=== PATIENT | female | born 1985 | race African-American/Black ===

== ENCOUNTER 2016-09-26 20:58 | Emergency (ER) | payer BC, OTHER ==
[2016-09-26 21:18] VITALS: BMI 35.0
--- NOTE | 2016-09-26 22:57 | PDOC ---
History of Present Illness - History of Present Illness Initial Comments: 09/26/16 23:12 Patient is a 31 year old female, s/p liposuction on 08/30/16, with no other significant medical hx, who is presenting to the ED with back pain and pedal edema. Patient received her liposuction in [place] and flew back to [place] five days later on 08/31. Since her surgery she's had back pain but it has been significantly worse today. The patient states that her pain is all over her back and severe. The patient also endorses fatigue and lower extremity swelling , predominantly in her feet. Denies chest pain, shortness of breath, lightheadedness, dizziness, surgical complications, fevers, chills, nausea, vomiting, diarrhea, headache or any other symptoms. Surgical Hx: Liposuction, x2 Allergies: NKDA 09/27/16 01:42 Upon second interview, patient admits to going to a massage therapist three times a week to have fluid drained from her back. She states that this involves the massage therapist puncturing her back with a needle to have the fluid drained. The patient had her last session today. <Molly Curry - Last Filed: 09/27/16 02:06> <Zahraa Amezquita - Last Filed: 09/28/16 01:40> - General Chief Complaint: Back Pain Stated Complaint: BACK PAIN/FEELING TIRED/LIGHTHEADED Time Seen by Provider: 09/26/16 21:40 Past History <Molly Curry - Last Filed: 09/27/16 02:06> - Immunization History Immunization Up to Date: Yes - Psycho/Social/Smoking Cessation Hx Anxiety: No Suicidal Ideation: No Smoking Status: No Smoking History: Never smoked Number of Cigarettes Smoked Daily: 0 Cigars Per Day: 0 Hx Alcohol Use: No Drug/Substance Use Hx: No Substance Use Type: None <Zahraa Amezquita - Last Filed: 09/28/16 01:40> - Past Medical History Allergies/Adverse Reactions: Allergies Allergy/AdvReac Type Severity Reaction Status Date / Time No Known Allergies Allergy Verified 09/26/16 21:14 Home Medications: Ambulatory Orders NK [No Known Home Medication] 09/27/16 Review of Systems - Review of Systems Comments:: 09/26/16 23:17 CONSTITUTIONAL: Present: fatigue Absent: fever, chills, diaphoresis, loss of appetite HEENT: Absent: rhinorrhea, nasal congestion, throat pain, throat swelling, difficulty swallowing, mouth swelling, ear pain, eye pain, visual changes CARDIOVASCULAR: Present: pedal edema Absent: chest pain, syncope, palpitations, irregular heart rate, lightheadedness RESPIRATORY: Absent: cough, shortness of breath, dyspnea with exertion, orthopnea, wheezing, stridor, hemoptysis GASTROINTESTINAL: Absent: abdominal pain, abdominal distension, nausea, vomiting, diarrhea, constipation, melena, hematochezia GENITOURINARY: Absent: dysuria, frequency, urgency, hesitancy, hematuria, flank pain, genital pain MUSCULOSKELETAL: Present: back pain Absent: myalgia, arthralgia, joint swelling SKIN: Absent: rash, itching, pallor HEMATOLOGIC/IMMUNOLOGIC: Absent: easy bleeding, easy bruising, lymphadenopathy, frequent infections ENDOCRINE: Absent: unexplained weight gain, unexplained weight loss, heat intolerance, cold intolerance NEUROLOGIC: Absent: headache, focal weakness or paresthesia, dizziness, unsteady gait, seizure, mental status changes, bladder or bowel incontinence. PSYCHIATRIC: Absent: anxiety, depression, suicidal or homicidal ideation, hallucinations <Antoinette,Molly - Last Filed: 09/27/16 02:06> *Physical Exam - Vital Signs Last Vital Signs Temp Pulse Resp BP Pulse Ox 98.6 F 104 H 20 117/71 99 09/26/16 21:14 09/26/16 21:14 09/26/16 21:14 09/26/16 21:14 09/26/16 21:14 - Physical Exam Comments: 09/26/16 23:18 GENERAL: Well developed, well nourished. Awake and alert. No acute distress. HEENT: Normocephalic, atraumatic. PERRLA, EOMI. No conjunctival pallor. Sclera are non- icteric. Moist mucous membranes. Oropharynx is clear. NECK: Supple. Full ROM. No JVD. Carotid pulses 2+ and symmetric, without bruits. No thyromegaly. No lymphadenopathy. CARDIOVASCULAR: Regular rate and rhythm. No murmurs, rubs, or gallops. Distal pulses are 2+ and symmetric. PULMONARY: No evidence of respiratory distress. Lungs clear to auscultation bilaterally. No wheezing, rales or rhonchi. ABDOMINAL: Soft. Non-tender. Non-distended. No rebound or guarding. No organomegaly. Normoactive bowel sounds. MUSCULOSKELETAL: No vertebral tenderness. Low lumbar pain. Normal range of motion at all joints. No bony deformities. No CVA tenderness. EXTREMITIES: Pedal edema. No cyanosis. No clubbing. No calf tenderness. SKIN: No signs of cellulitis. No erythema. No manning. No drainage from any sites. Warm and dry. Normal capillary refill. No rashes. No jaundice. NEUROLOGICAL: Alert, awake, appropriate. Cranial nerves 2-12 intact. Normal speech. Gait is normal without ataxia. PSYCHIATRIC: Cooperative. Good eye contact. Appropriate mood and affect. <Molly Curry - Last Filed: 09/27/16 02:06> - Vital Signs Last Vital Signs Temp Pulse Resp BP Pulse Ox 98.6 F 104 H 20 117/71 99 09/26/16 21:14 09/26/16 21:14 09/26/16 21:14 09/26/16 21:14 09/26/16 21:14 <Zahraa Amezquita - Last Filed: 09/28/16 01:40> ED Treatment Course - LABORATORY CBC & Chemistry Diagram: 09/26/16 23:40 09/26/16 23:40 - RADIOLOGY Radiograph Interpretation: 09/27/16 01:25 Chrome Worker: (soledad) Report Date: 09/26/2016 23:49:00 Report Status: Preliminary Begin of Report Content Referring Physician: Zahraa Amezquita Patient Name: Christel Nails THIS IS A PRELIMINARY REPORT FROM [facility] IMAGES: 38 EXAM DATE AND TIME: 2016-09-26 23:49:25.0 EXAM: VENOUS DUPLEX BILATERAL No evidence for DVT bilateral lower extremities. THIS DOCUMENT HAS BEEN ELECTRONICALLY SIGNED Vanessa Man M.D. 09/27/2016 01:24 MELISA Gupta Please call [facility] Att[facility] [phone]) with questions. End of Report Content <Molly Curry - Last Filed: 09/27/16 02:06> - LABORATORY CBC & Chemistry Diagram: 09/26/16 23:40 09/26/16 23:40 <Zahraa Amezquita - Last Filed: 09/28/16 01:40> Medical Decision Making - Medical Decision Making 09/27/16 01:26 31 yo female p/w complaint of low back pain and some LE edema HPI had liposuction in [place] August 31 and flew to [place] September 04 -denies any dyspnea -examination of pt's abdomen and back shows no evidence of infection, cellulitis,no purulence -pt went for massage at the spa and they wanted to make sure she did not have any blood clots because of the edema duplex doppler NEGATIVE for DVT labs unremarkable 09/27/16 02:17 <Zahraa Amezquita - Last Filed: 09/28/16 01:40> *DC/Admit/Observation/Transfer - Attestations Scribe Attestion: 09/26/16 23:31 Documentation prepared by Molly Curry, acting as director medical surgical for Zahraa Amezquita MD. <Molly Curry - Last Filed: 09/27/16 02:06> <Zahraa Amezquita - Last Filed: 09/28/16 01:40> Diagnosis at time of Disposition: Backache Edema Qualifiers: Edema type: unspecified Qualified Code(s): R60.9 - Edema, unspecified - Discharge Dispostion Disposition: HOME Condition at time of disposition: Stable - Patient Instructions Printed Discharge Instructions: DI for Peripheral Edema -- Bilateral, DI for Low Back Pain Additional Instructions: please follow up with your physician this week return to ER for any worsening symptoms
[2016-09-27 00:04] LABS: BASOPHIL 0.9 % (0-2.0); EOSINOPHIL 6.6 % (0-4.5); MCHC 32.9 g/dl (32.0-36.0); MEAN CELL VOLUME 85.1 fl (80-96); PLATELET COUNT 426 K/MM3 (134-434); RDW 16.3 % (11.6-15.6); WHITE BLOOD COUNT 6.8 K/mm3 (4.0-10.0)
[2016-09-27 00:07] LABS: URINE APPEARANCE CLEAR; URINE BILIRUBIN NEGATIVE (NEGATIVE); URINE BLOOD NEGATIVE (NEGATIVE); URINE COLOR LTYELLOW; URINE GLUCOSE (UA) NEGATIVE (NEGATIVE); URINE KETONE NEGATIVE (NEGATIVE); URINE NITRITE NEGATIVE (NEGATIVE); URINE PROTEIN NEGATIVE (NEGATIVE); URINE UROBILINOGEN 2.0 E.U/dl E.U./dl (0.2-1.0)
[2016-09-27 00:33] LABS: ALBUMIN 3.8 g/dl (3.4-5.0); ANION GAP 11 (8-16); BILIRUBIN,TOTAL 0.6 mg/dL (0.2-1.0); CALCIUM 8.9 mg/dL (8.5-10.1); CO2 24 mmol/L (21-32); CREATININE 0.6 mg/dL (0.55-1.02); GLUCOSE,RANDOM 83 mg/dL (74-106); SGOT/AST 19 U/L (15-37); SGPT/ALT 21 U/L (12-78); TOT PROT 7.3 g/dl (6.4-8.2)
[2016-09-27 00:34] LABS: ALK PHOS 110 U/L (45-117)
[2016-09-27 00:36] LABS: URINE LEUK ESTERASE TRACE (NEGATIVE)
[2016-09-27] MEDS ORDERED: IBUPROFEN 600 MG TABLET (FP) PO ONE ×3 (01:42→02:27)
[2016-09-27] MEDS ORDERED: diazePAM 5 MG TABLET PO ONE (01:42)
[2016-09-27 05:16] VITALS: BP 119/72; PULSE 89; TEMP 98.5
== END 2016-09-27 02:34 | disposition home or self-care (01) ==
LOC: JER 20:58
DX: R60.9 Edema, unspecified (principal); Z98.890 Other specified postprocedural states
CPT/HCPCS: 36415; 80053; 81003; 81015; 84703; 85025; 93970-TC; 99282-25

== ENCOUNTER 2017-07-22 06:33 | Emergency (ER) | payer SELFPAY ==
[2017-07-22 06:50] VITALS: BMI 30.9
[2017-07-22] MEDS ORDERED: morphine CARPU-JECT 4 MG/1 ML DISP.SYRIN IVPUSH ONE (06:54)
[2017-07-22] MEDS ORDERED: ONDANSETRON 4 MG/2 ML VIAL IVPUSH ONE (06:55)
[2017-07-22] MEDS ORDERED: MORPHINE SULFATE 10 MG/1 ML *VIAL ONE (06:56)
[2017-07-22] MEDS ORDERED: ONDANSETRON 4 MG/2 ML VIAL ONE (06:58)
[2017-07-22] MEDS ORDERED: MAG HYDROX/AL HYDROX/SIMETH 355 ML ORAL.SUSP PO ONE (07:37)
--- NOTE | 2017-07-22 07:38 | PDOC ---
Attending Attestation - Resident Resident Name: Sajan Nails - ED Attending Attestation I have performed the following: I have examined & evaluated the patient, The case was reviewed & discussed with the resident, I agree w/resident's findings & plan, Exceptions are as noted - HPI HPI: 07/22/17 07:39 31y F no known pmhyx presents with complaint of sudden onset of sharp epigastric /upper abdominal pain since around 5am. Pt denies any fever/chills, n/v, diarrhea, dysuria. pain is constant. Pt endorses sob due to the pain. No prior episodes of similar pain before. Pt deines any recent cough, le gswelling. hx of c ssections and liposuction in the past. pt normally has irregular periods and is about 12 days late (typically has irregular periods) on exam pt has mild upper abd tenderness, neg murphies, no rebound/guarding ddx - gastritis, gall bladder disease, pancreatitis will obtain ekg will give pepcid/maalox/toradol - Physicial Exam PE: 07/22/17 16:02 see above - Medical Decision Making 07/22/17 10:26 pt feeling improved labs and US negative suspect gastritis will dc with gastritis meds and supportive care will dc with pmd fu return precautions were discussed Heart Score/ECG Review - ECG Impressions Comment:: 07/22/17 09:44 Twelve-lead EKG was performed and reviewed by me. There is normal sinus rhythm with a normal rate. Rate of 72 The axis is normal. The intervals are normal. There is normal R wave progression There are no ST or T wave abnormalities. Impression: Normal twelve-lead EKG
[2017-07-22] MEDS ORDERED: FAMOTIDINE 20 MG/50 ML IVPB 20 MG/50 ML MG IVPB ONE (07:45)
[2017-07-22] MEDS ORDERED: MAG HYDROX/AL HYDROX/SIMETH 30 ML UNIT-DOSE CUP ONE (07:45)
--- NOTE | 2017-07-22 07:57 | PDOC ---
History of Present Illness - General History Source: Patient Exam Limitations: No Limitations - History of Present Illness Initial Comments: 07/22/17 07:57 Patient is a 31 year old female, s/p liposuction on 08/30/16 presents with bilateral upper quadrant abdominal pain since waking up at 5 this morning. She states the pain is 10/10 and woke her up from her sleep, radiates to her back and worse in the epigastric area. Denies nausea, vomiting, constipation, diarrhea or dysuria. . She's a few days late for her period but states that this is normal for her. This has never happened to her before. Denies lower abdominal pain <Sajan Nails - Last Filed: 07/22/17 10:23> <Brando Ying - Last Filed: 07/22/17 10:34> - General Chief Complaint: Pain, Acute Stated Complaint: ABD PAIN Time Seen by Provider: 07/22/17 07:01 Past History - Immunization History Immunization Up to Date: Yes - Suicide/Smoking/Psychosocial Hx Smoking Status: No Smoking History: Never smoked Have you smoked in the past 12 months: No Number of Cigarettes Smoked Daily: 0 Cigars Per Day: 0 Information on smoking cessation initiated: No Hx Alcohol Use: No Drug/Substance Use Hx: No Substance Use Type: None <Sajan Nails - Last Filed: 07/22/17 10:23> <Brando Ying - Last Filed: 07/22/17 10:34> - Past Medical History Allergies/Adverse Reactions: Allergies Allergy/AdvReac Type Severity Reaction Status Date / Time No Known Allergies Allergy Verified 07/22/17 06:47 Home Medications: Ambulatory Orders Omeprazole 20 mg PO DAILY #10 capsule. 07/22/17 Review of Systems - Review of Systems Able to Perform ROS?: Yes Is the patient limited Azeri proficient: No Constitutional: No: Symptoms Reported HEENTM: No: Symptoms Reported Respiratory: Yes: Other (abdominal pain upon inspiration) Cardiac (ROS): No: Symptoms Reported ABD/GI: Yes: See HPI : No: Symptoms Reported Musculoskeletal: No: Symptoms Reported Integumentary: No: Symptoms Reported Neurological: No: Symptoms reported All Other Systems: Reviewed and Negative <Sajan Nails - Last Filed: 07/22/17 10:23> *Physical Exam - Vital Signs Last Vital Signs Temp Pulse Resp BP Pulse Ox 112 H 22 115/79 99 07/22/17 06:47 07/22/17 06:47 07/22/17 06:47 07/22/17 06:47 - Physical Exam General Appearance: Yes: Nourished, Appropriately Dressed, Severe Distress HEENT: positive: EOMI, [place], Normal ENT Inspection Respiratory/Chest: positive: Lungs Clear, Normal Breath Sounds. negative: Chest Tender, Respiratory Distress Cardiovascular: positive: Regular Rhythm, S1, S2, Tachycardia Gastrointestinal/Abdominal: positive: Tender (RUQ and epigastric), Soft, Increased Bowel Sounds, Protuberent Musculoskeletal: positive: Normal Inspection Extremity: positive: Normal Capillary Refill, Normal Inspection, Normal Range of Motion Integumentary: positive: Normal Color, Dry, Warm Neurologic: positive: Fully Oriented, Alert, Normal Mood/Affect, Normal Response , Motor Strength 5/5 <Sajan Nails - Last Filed: 07/22/17 10:23> - Vital Signs Last Vital Signs Temp Pulse Resp BP Pulse Ox 98.3 F 66 16 96/54 100 07/22/17 10:28 07/22/17 10:28 07/22/17 10:28 07/22/17 10:28 07/22/17 10:28 <Brando Ying - Last Filed: 07/22/17 10:34> ED Treatment Course - LABORATORY CBC & Chemistry Diagram: 07/22/17 07:55 07/22/17 07:55 - Medications Given in the ED: ED Medications Discontinued Medications Generic Name Dose Route Start Last Admin Trade Name Pakoq PRN Reason Stop Dose Admin Al Hydroxide/Mg Hydroxide 30 ml 07/22/17 07:37 07/22/17 07:50 Mylanta Suspension - PO 07/22/17 07:38 30 ml ONCE ONE Administration Morphine Sulfate 4 mg 07/22/17 06:54 07/22/17 06:59 Morphine Injection - IVPUSH 07/22/17 06:55 4 mg ONCE ONE Administration Ondansetron HCl 4 mg 07/22/17 06:55 07/22/17 06:59 Zofran Injection IVPUSH 07/22/17 06:56 4 mg ONCE ONE Administration <Sajan Nails - Last Filed: 07/22/17 10:23> - LABORATORY CBC & Chemistry Diagram: 07/22/17 07:55 07/22/17 07:55 - ADDITIONAL ORDERS Additional order review: Laboratory Results 07/22/17 07/22/17 07/22/17 09:20 07:55 07:55 Sodium 141 Potassium 3.8 Chloride 109 H Carbon Dioxide 24 Anion Gap 8 BUN 11 Creatinine 0.7 Creat Clearance w eGFR > 60 Random Glucose 85 Calcium 7.6 L Total Bilirubin 0.7 AST 44 H ALT 27 Alkaline Phosphatase 105 Total Protein 6.6 Albumin 3.1 L Lipase 95 Beta HCG, Quant < 1.0 Urine Color Yellow Urine Appearance Clear Urine pH 6.0 Ur Specific [place] 1.018 Urine Protein Negative Urine Glucose (UA) Negative Urine Ketones Negative Urine Blood Negative Urine Nitrite Negative Urine Bilirubin Negative Urine Urobilinogen Negative Ur Leukocyte Esterase Negative 07/22/17 07:55 RBC 3.57 L MCV 84.7 MCHC 33.7 RDW 15.7 H MPV 8.0 Neutrophils % 79.5 D Lymphocytes % 15.3 D Monocytes % 3.7 L Eosinophils % 1.0 D Basophils % 0.5 - Medications Given in the ED: ED Medications Discontinued Medications Generic Name Dose Route Start Last Admin Trade Name Freq PRN Reason Stop Dose Admin Al Hydroxide/Mg Hydroxide 30 ml 07/22/17 07:37 07/22/17 07:50 Mylanta Suspension - PO 07/22/17 07:38 30 ml ONCE ONE Administration Morphine Sulfate 4 mg 07/22/17 06:54 07/22/17 06:59 Morphine Injection - IVPUSH 07/22/17 06:55 4 mg ONCE ONE Administration Ondansetron HCl 4 mg 07/22/17 06:55 07/22/17 06:59 Zofran Injection IVPUSH 07/22/17 06:56 4 mg ONCE ONE Administration <Brando Ying - Last Filed: 07/22/17 10:34> Medical Decision Making - Medical Decision Making 07/22/17 08:48 31F with upper abdominal pain since waking up this morning. Will send for lab and r/o gallstones with ultrasound 07/22/17 10:23 negative labs and imaging. 07/22/17 10:24 Will dc with f/u and PPI rx <Sajan Nails - Last Filed: 07/22/17 10:23> *DC/Admit/Observation/Transfer - Discharge Dispostion Admit: No <Sajan Nails - Last Filed: 07/22/17 10:23> - Discharge Dispostion Admit: No <Brando Ying - Last Filed: 07/22/17 10:34> Diagnosis at time of Disposition: Gastritis Qualifiers: Gastritis type: unspecified gastritis Chronicity: unspecified Gastritis bleeding: without bleeding Qualified Code(s): K29.70 - Gastritis, unspecified, without bleeding - Discharge Dispostion Disposition: HOME Condition at time of disposition: Improved - Prescriptions Prescriptions: Omeprazole 20 mg PO DAILY #10 capsule.dr - Referrals Referrals: Daniel Lau MD [Staff Physician] - - Patient Instructions Printed Discharge Instructions: DI for Gastritis, GERD Diet Additional Instructions: Follow up with your primary doctor within the next 2-3 days. Come back to the ER for any new, worsening or concerning symptoms. sorting supervisor prescription at pharmacy and use twice a day as needed when pain occurs. Return to the emergency department immediately with ANY new, persistent or worsening symptoms including any recurrent abdominal pain, fevers, chills, inability to tolerate oral intake or any other concerns. Stay away from alcohol, spicy foods, caffeine, acidic/sour foods. Take maalox if you have burning for relief. You MUST call and follow up with your doctor within 5 days for further evaluation of your symptoms. Your emergency department visit is not complete without a followup with your doctor for reevaluation. Results were discussed with you. Please make sure your doctor reviews the results of your emergency evaluation.
[2017-07-22] MEDS ORDERED: FAMOTIDINE IV 20 MG/12 ML VIAL IVPUSH SCH ×2 (08:11→10:00)
[2017-07-22 08:21] LABS: BASO % 0.5 % (0-2.0); HEMATOCRIT 30.2 % (32.4-45.2); HEMOGLOBIN 10.2 GM/dL (10.7-15.3); LYMPH % 15.3 % (8-40); MCH 28.5 pg (25.7-33.7); MCHC 33.7 g/dl (32.0-36.0); MEAN CELL VOLUME 84.7 fl (80-96); MONO % 3.7 % (3.8-10.2); NEUT % 79.5 % (42.8-82.8); PLATELET COUNT 394 K/MM3 (134-434); RBC 3.57 M/mm3 (3.60-5.2); RDW 15.7 % (11.6-15.6)
[2017-07-22 08:42] LABS: ALBUMIN 3.1 g/dl (3.4-5.0); ANION GAP 8 (8-16); BLOOD UREA NITROGEN 11 mg/dL (7-18); CALCIUM 7.6 mg/dL (8.5-10.1); CHLORIDE 109 mmol/L (98-107); CO2 24 mmol/L (21-32); CREATININE 0.7 mg/dL (0.55-1.02); GLUCOSE,RANDOM 85 mg/dL (74-106); POTASSIUM 3.8 mmol/L (3.5-5.1); SGOT/AST 44 U/L (15-37); SGPT/ALT 27 U/L (12-78); SODIUM 141 mmol/L (136-145)
[2017-07-22 08:45] LABS: ALK PHOS 105 U/L (45-117); BILIRUBIN,TOTAL 0.7 mg/dL (0.2-1.0); TOT PROT 6.6 g/dl (6.4-8.2)
[2017-07-22 09:33] LABS: URINE APPEARANCE CLEAR; URINE BILIRUBIN NEGATIVE (NEGATIVE); URINE BLOOD NEGATIVE (NEGATIVE); URINE COLOR YELLOW; URINE GLUCOSE (UA) NEGATIVE (NEGATIVE); URINE KETONE NEGATIVE (NEGATIVE); URINE LEUK ESTERASE NEGATIVE (NEGATIVE); URINE NITRITE NEGATIVE (NEGATIVE); URINE PROTEIN NEGATIVE (NEGATIVE); URINE UROBILINOGEN NEGATIVE mg/dL (0.2-1.0)
[2017-07-22 10:29] VITALS: BP 96/54; PULSE 66; TEMP 98.3
--- NOTE | 2017-07-22 22:37 | EKG ---
Test Reason : Blood Pressure : / mmHG Vent. Rate : 072 BPM Atrial Rate : 072 BPM P-R Int : 164 ms QRS Dur : 080 ms QT Int : 392 ms P-R-T Axes : 048 007 029 degrees QTc Int : 429 ms NORMAL SINUS RHYTHM NORMAL ECG WHEN COMPARED WITH ECG OF 17-AUG-2016 16:35, NO SIGNIFICANT CHANGE WAS FOUND Confirmed by MD RENEE, JOSE ([id number]) on 07/22/2017 10:36:38 PM Referred By: Confirmed By:JOSE DURAN MD
== END 2017-07-22 10:57 | disposition home or self-care (01) ==
LOC: JER 06:33
PROC: 3E033NZ Introduction of Analgesics, Hypnotics, Sedatives into Peripheral Vein, Percutaneous Approach (ICD-10-PCS; principal; 2017-07-22)
PROC: 3E033GC Introduction of Other Therapeutic Substance into Peripheral Vein, Percutaneous Approach (ICD-10-PCS; 2017-07-22)
DX: K29.70 Gastritis, unspecified, without bleeding (principal)
CPT/HCPCS: 36415; 76705-TC; 80053; 81003; 83690; 84702; 85025; 93005; 93010; 99283-25

== ENCOUNTER 2017-07-23 02:10 | Inpatient (IN) | payer OTHER ==
[2017-07-23 03:01] VITALS: BMI 32.5
[2017-07-23] MEDS ORDERED: SODIUM CHLORIDE 1,000 ML IV STA (03:19)
[2017-07-23] MEDS ORDERED: morphine CARPU-JECT 2 MG/1 ML DISP.SYRIN IVPUSH ONE (03:19)
[2017-07-23] MEDS ORDERED: ONDANSETRON 4 MG/2 ML VIAL IVPUSH ONE (03:19)
--- NOTE | 2017-07-23 03:28 | PDOC ---
History of Present Illness - General Chief Complaint: Pain, Acute Stated Complaint: ABDOMINAL PAIN Time Seen by Provider: 07/23/17 02:54 History Source: Patient, Old Records Exam Limitations: No Limitations - History of Present Illness Travel History: No Initial Comments: 07/23/17 03:22 This is a 31-year-old female without significant past medical history who presents to the emergency department with worsening abdominal pain and vomiting for 2 days. Patient seen and evaluated in this emergency department for upper abdominal pain on July 22. At that time blood and urine testing was normal patient had a normal ultrasound the right upper quadrant. Patient got home she started to feel pain and tried taking Tylenol. Medially after taking the Tylenol the patient became nauseous and vomited. She states the vomit was nonbilious and nonbloody and was undigested food which was a muffin and a bottle water. Since that episode of vomiting patient has been able to tolerate broth intermittently. Patient states she's been having multiple loose stools since Monday which have been green or brown. She denies any rectal bleeding or black tarry stools. She denies fevers, chills, headache, chest pain, shortness of breath, dysuria. Past History - Past Medical History Allergies/Adverse Reactions: Allergies Allergy/AdvReac Type Severity Reaction Status Date / Time No Known Allergies Allergy Verified 07/22/17 06:47 Home Medications: Ambulatory Orders Omeprazole 20 mg PO DAILY #10 capsule. 07/22/17 COPD: No - Immunization History Immunization Up to Date: Yes - Suicide/Smoking/Psychosocial Hx Smoking Status: No Smoking History: Unknown if ever smoked Have you smoked in the past 12 months: No Number of Cigarettes Smoked Daily: 0 Cigars Per Day: 0 Information on smoking cessation initiated: No Hx Alcohol Use: No Drug/Substance Use Hx: No Substance Use Type: None Review of Systems - Review of Systems Able to Perform ROS?: Yes Is the patient limited Samoan proficient: No Constitutional: No: Symptoms Reported HEENTM: No: Symptoms Reported Respiratory: No: Symptoms reported Cardiac (ROS): No: Symptoms Reported ABD/GI: Yes: See HPI : No: Symptoms Reported Musculoskeletal: No: Symptoms Reported Integumentary: No: Symptoms Reported Neurological: No: Symptoms reported *Physical Exam - Vital Signs Last Vital Signs Temp Pulse Resp BP Pulse Ox 98.5 F 66 15 99/63 99 07/23/17 02:54 07/23/17 02:54 07/23/17 02:54 07/23/17 02:54 07/23/17 02:54 - Physical Exam General Appearance: Yes: Appropriately Dressed. No: Apparent Distress Neck: positive: Trachea midline, Supple Respiratory/Chest: positive: Lungs Clear, Normal Breath Sounds. negative: Respiratory Distress, Accessory Muscle Use Cardiovascular: positive: Regular Rhythm, Regular Rate. negative: Murmur Gastrointestinal/Abdominal: positive: Normal Bowel Sounds, Tender (diffusely tender which is worse over upper abdomen and RLQ.), Soft, Tenderness (diffusely tender which is worse over upper abdomen and RLQ.). negative: Mass Musculoskeletal: positive: Normal Inspection. negative: CVA Tenderness Extremity: positive: Normal Capillary Refill, Normal Inspection, Normal Range of Motion Integumentary: positive: Normal Color, Dry, Warm Neurologic: positive: Fully Oriented, Alert, Normal Response, Motor Strength 5/5 ED Treatment Course - LABORATORY CBC & Chemistry Diagram: 07/26/17 06:00 07/26/17 06:00 - RADIOLOGY Radiology Studies Ordered: Category Date Time Status ABDOMEN & PELVIS CT WITH CONTR [CT] Stat CT Scan 07/23/17 03:19 Ordered Medical Decision Making - Medical Decision Making 07/23/17 03:26 A/P: 31-year-old woman with worsening abdominal pain and vomiting over the past 2 days Abdomen diffusely tender. Tenderness worsens the upper quadrants and right lower quadrant. Patient with negative right upper quadrant ultrasound on 07/22. Laboratory testing unremarkable yesterday with normal UA. DDX: gastroenteritis, appy, diverticulitis, perforation, pancreatitis- less likely given nml U/S and lipase yesterday Given worsening symptoms which have now spread to the right lower quadrant, I will obtain CAT scan of the abdomen and pelvis with PO and IV contrast. I will repeat laboratory testing. Normal saline, morphine, Zofran Reassess 07/23/17 05:35 CMP reveals total bili 3.3, AST 239, ALT 199, alkaline phosphatase 193, lipase 9602. Creatinine 0.8. Heart rate and respiratory rate within normal limits. Patient currently in CAT scan. I will admit the patient to hospitalist service for management of pancreatitis. I'll start the patient with aggressive hydration- NS@10mL/KG/hr 07/23/17 06:09 Case discussed with hospitalist Dr. Hurt who accepts patient for admission to [facility]. Consult for GI Dr. Adela adams. Blood cultures, lactate, VBG pending. *DC/Admit/Observation/Transfer Diagnosis at time of Disposition: Acute pancreatitis Qualifiers: Pancreatitis type: unspecified pancreatitis type Acute pancreatitis complication: unspecified Qualified Code(s): K85.90 - Acute pancreatitis without necrosis or infection, unspecified - Discharge Dispostion Condition at time of disposition: Guarded Admit: Yes - Referrals - Patient Instructions - Post Discharge Activity
[2017-07-23] MEDS ORDERED: MORPHINE SULFATE 10 MG/1 ML *VIAL ONE ×2 (03:32→06:05)
[2017-07-23] MEDS ORDERED: ONDANSETRON 4 MG/2 ML VIAL ONE (03:32)
[2017-07-23 04:01] LABS: BASO % 0.4 % (0-2.0); EOS % 0.2 % (0-4.5); HEMATOCRIT 36.9 % (32.4-45.2); HEMOGLOBIN 12.4 GM/dL (10.7-15.3); LYMPH % 9.1 % (8-40); MCH 28.5 pg (25.7-33.7); MCHC 33.7 g/dl (32.0-36.0); MEAN CELL VOLUME 84.8 fl (80-96); MEAN PLT VOLUME 8.4 fl (7.5-11.1); MONO % 2.4 % (3.8-10.2); NEUT % 87.9 % (42.8-82.8); PLATELET COUNT 479 K/MM3 (134-434); RBC 4.35 M/mm3 (3.60-5.2); RDW 15.7 % (11.6-15.6); WHITE BLOOD COUNT 10.9 K/mm3 (4.0-10.0)
[2017-07-23 04:29] LABS: ALBUMIN 3.8 g/dl (3.4-5.0); ANION GAP 6 (8-16); BILIRUBIN,TOTAL 3.3 mg/dL (0.2-1.0); BLOOD UREA NITROGEN 7 mg/dL (7-18); CALCIUM 8.8 mg/dL (8.5-10.1); CHLORIDE 103 mmol/L (98-107); CO2 28 mmol/L (21-32); CREATININE 0.8 mg/dL (0.55-1.02); GLUCOSE,RANDOM 111 mg/dL (74-106); SGOT/AST 239 U/L (15-37); SGPT/ALT 199 U/L (12-78); SODIUM 137 mmol/L (136-145); TOT PROT 8.2 g/dl (6.4-8.2)
[2017-07-23 04:30] LABS: ALK PHOS 193 U/L (45-117)
[2017-07-23 04:31] LABS: LIPASE 9602 U/L (73-393)
[2017-07-23] MEDS ORDERED: SODIUM CHLORIDE 1,000 ML IV SCH ×3 (05:15→08:00)
[2017-07-23] MEDS ORDERED: morphine CARPU-JECT 4 MG/1 ML DISP.SYRIN IVPUSH ONE (05:48)
[2017-07-23 06:40] LABS: VENOUS PC02 47.9 mmHg (38-52); VENOUS PH 7.34 (7.32-7.42); VENOUS PO2 38.1 mmHg (28-48)
[2017-07-23] MEDS ORDERED: morphine CARPU-JECT 2 MG/1 ML DISP.SYRIN IVPUSH PRN (07:35)
[2017-07-23] MEDS ORDERED: ONDANSETRON 4 MG/2 ML VIAL IVPUSH PRN (07:35)
--- NOTE | 2017-07-23 07:40 | HP ---
CHIEF COMPLAINT: abdominal pain PCP: HISTORY OF PRESENT ILLNESS: 31 yo F with no significant PMHx who presents to the ED with worsening abdominal pain and vomiting for 2 days. She describes 10/10 constant,sharp, non radiating epigastric abdominal pain. Aggravated by lying flat some relief with kneeling. Patient seen and evaluated in this emergency department for upper abdominal pain on July 22. At that time blood and urine testing was normal patient had a normal ultrasound the right upper quadrant. Patient was discharged with diagnosis of gastroenteritis. Vomit x1 NBNB. Since that episode of vomiting patient has been able to tolerate broth intermittently. Patient states she's been having multiple loose stools since Monday which have been green or brown. She denies any rectal bleeding or black tarry stools. She denies fevers, chills, headache, chest pain, shortness of breath, dysuria. ER course was notable for: (1)RUQ US negative for gallstones. (2)Lipase 9602 (3)CT abdomen shows acute cholecystitis. Recent Travel: Denies PAST MEDICAL HISTORY: none PAST SURGICAL HISTORY: Liposuction 2016, C-sectionX2 Social History: Smoking:never Alcohol:denies Drugs: denies Family History:Father(unknown) , Mother(no health problems) Allergies No Known Allergies Allergy (Verified 07/22/17 06:47) HOME MEDICATIONS: Home Medications Medication Instructions Recorded Omeprazole 20 mg PO DAILY #10 capsule. 07/22/17 REVIEW OF SYSTEMS CONSTITUTIONAL: Absent: fever, chills, diaphoresis, generalized weakness, malaise, loss of appetite, weight change HEENT: Absent: rhinorrhea, nasal congestion, throat pain, throat swelling, difficulty swallowing, mouth swelling, ear pain, eye pain, visual changes CARDIOVASCULAR: Absent: chest pain, syncope, palpitations, irregular heart rate, lightheadedness , peripheral edema RESPIRATORY: Absent: cough, shortness of breath, dyspnea with exertion, orthopnea, wheezing, stridor, hemoptysis GASTROINTESTINAL:+abdominal pain, abdominal distension, nausea, vomiting Absent: diarrhea, constipation, melena, hematochezia GENITOURINARY: Absent: dysuria, frequency, urgency, hesitancy, hematuria, flank pain, genital pain MUSCULOSKELETAL: Absent: myalgia, arthralgia, joint swelling, back pain, neck pain SKIN: Absent: rash, itching, pallor HEMATOLOGIC/IMMUNOLOGIC: Absent: easy bleeding, easy bruising, lymphadenopathy, frequent infections ENDOCRINE: Absent: unexplained weight gain, unexplained weight loss, heat intolerance, cold intolerance NEUROLOGIC: Absent: headache, focal weakness or paresthesias, dizziness, unsteady gait, seizure, mental status changes, bladder or bowel incontinence PSYCHIATRIC: Absent: anxiety, depression, suicidal or homicidal ideation, hallucinations. PHYSICAL EXAMINATION Vital Signs - 24 hr 07/23/17 07/23/17 02:54 05:57 Temperature 98.5 F 98.2 F Pulse Rate 66 Pulse Rate [ 72 Apical] Respiratory 15 18 Rate Blood Pressure 99/63 Blood Pressure 98/55 [Left Arm] O2 Sat by Pulse 99 99 Oximetry (%) GENERAL: AAOx3 , NAD HEAD: NC/AT EYES:PERRLA, EOMI, sclera anicteric, conjunctiva clear. No lid lag. EARS, NOSE, THROAT: dry mucous membranes. NECK: supple with no JVD or LAD LUNGS: CTAB, no wheezing or rales. HEART: RRR, NL S1S2, NO M/G/R ABDOMEN: Soft,obese, epigastric tenderness. normoactive bowel sounds, no guarding, no rebound, no masses. MUSCULOSKELETAL: No CVA tenderness. LOWER EXTREMITIES: 2+ pulses, warm, well-perfused. No calf tenderness. No peripheral edema. NEUROLOGICAL: Cranial nerves II-XII intact. Normal speech. PSYCHIATRIC: Cooperative. Good eye contact. Appropriate mood and affect. SKIN: Warm, dry, normal turgor, no rashes or lesions noted, normal capillary refill. Laboratory Results - last 24 hr 07/23/17 07/23/17 07/23/17 03:30 03:30 06:20 WBC 10.9 H RBC 4.35 D Hgb 12.4 D Hct 36.9 D MCV 84.8 MCH 28.5 MCHC 33.7 RDW 15.7 H Plt Count 479 H D MPV 8.4 Neutrophils % 87.9 H Lymphocytes % 9.1 D Monocytes % 2.4 L Eosinophils % 0.2 Basophils % 0.4 VBG pH 7.34 POC VBG pCO2 47.9 POC VBG pO2 38.1 Mixed VBG HCO3 25.1 H Sodium 137 Potassium 4.0 Chloride 103 Carbon Dioxide 28 Anion Gap 6 L BUN 7 Creatinine 0.8 Creat Clearance w eGFR > 60 Random Glucose 111 H Lactic Acid Calcium 8.8 Total Bilirubin 3.3 H D AST 239 H ALT 199 H Alkaline Phosphatase 193 H Total Protein 8.2 Albumin 3.8 Lipase 9602 H 07/23/17 06:30 WBC RBC Hgb Hct MCV MCH MCHC RDW Plt Count MPV Neutrophils % Lymphocytes % Monocytes % Eosinophils % Basophils % VBG pH POC VBG pCO2 POC VBG pO2 Mixed VBG HCO3 Sodium Potassium Chloride Carbon Dioxide Anion Gap BUN Creatinine Creat Clearance w eGFR Random Glucose Lactic Acid 0.8 Calcium Total Bilirubin AST ALT Alkaline Phosphatase Total Protein Albumin Lipase ASSESSMENT/PLAN: 31 yo F with no significant pmhx presented with abdominal pain and admitted to Med/Surg for Acute pancreatitis. Problem List - Problem (1) Acute pancreatitis Assessment/Plan: Most likely 2/2 gallstones. * RUQ showed no stones. * CT abdomen shows signs of acute cholecystitis. - will start empiric Levaquin and Flagyl . * Lipid panel pending. * NPO * Gastro consult * IVF with LR @ 150ml/hr * Zofran PRN for nausea * Pain control with Morphine 2mg IV Q4H Visit type - Emergency Visit Emergency Visit: Yes ED Registration Date: 07/23/17 Care time: The patient presented to the Emergency Department on the above date and was hospitalized for further evaluation of their emergent condition. - New Patient This patient is new to me today: Yes Date on this admission: 07/23/17 - Critical Care Critical Care patient: No Hospitalist Screening - Colonoscopy Questionnaire Colonoscopy Questionnaire: Colonoscopy Questionnaire - Patient: 50 - 75 years old and never had a screening colonoscopy: No History of colon or rectal polyps, or CA: No History of IBD, Crohn's disease or UC: No History of abdominal radiation therapy as a child: No - Relative: 1 with colon or rectal CA, or polyps at age 60 or younger: No Colon or rectal CA diagnosed at age 45 or younger: No Multiple relatives with colon or rectal CA: No - Outcome: Screening Result: Negative Screen
[2017-07-23] MEDS ORDERED: LACTATED RINGERS SOLUTION 1,000 ML/1,000 ML INFUS.BAG IV SCH ×3 (09:00→18:00)
[2017-07-23 09:12] LABS: CHOLESTEROL 122 mg/dL (50-200); HDL CHOLESTEROL 49 mg/dL (40-60); LDL CHOLESTEROL (ONLY SJRH) 67 mg/dL (5-100); TRIGLYCERIDES 59 mg/dL (35-160)
--- NOTE | 2017-07-23 09:21 | PN ---
Teaching Attending Note Name of Resident: Aldo Mahoney ATTENDING PHYSICIAN STATEMENT I saw and evaluated the patient. I reviewed the resident's note and discussed the case with the resident. I agree with the resident's findings and plan as documented. SUBJECTIVE:31yo F with no PMH presenting with epigastric pain x2 days. assoc with nausea and vomiting. came to ER yesterday had lab work and U/s all which was negative. pain resolved in the ER and sent home. returned last night because pain became increasingly worse. presently pain is now radiating to LLQ. no similar episodes in the past. denies having pain after eating fatty foods. denies CP, SOB, fever, chills, C/D, last ETOH beverage was 1 month ago. no family hx. denies using supplements OBJECTIVE: Last Vital Signs Temp Pulse Resp BP Pulse Ox 98.2 F 72 18 98/55 99 07/23/17 05:57 07/23/17 05:57 07/23/17 05:57 07/23/17 05:57 07/23/17 05:57 General NAD CV S1 S2 RRR no murmur/rub/gallop Lungs CTA B/L no wheezing/rales/rhonchi Abdomen diffusely tender, +mckeon sign. soft , ND, normoactive BS, obese extremities no pedal edema ASSESSMENT AND PLAN: 31yo F with no PMH presenting with epigastric pain x2 days 1. Acute Pancreatitis- medicine admission. likely due to gallstones. elevated transaminases. TG WNL. u/s yesterday showed no stones and normal CBD. Awaiting official read on CT scan. NPO, LR, pain and nausea control. Gi consulted. 2. Hyperbilirubinemia- concerned for retained stone although normal on u/s yesterday. awaiting official CT read. GI consulted 3. Thrombophilia- likely reactive 4. Leukocytosis- likely reactive due to acute inflammatory process. UA negative. Cx sent. will hold abx at this time. 5. Obese- lifestyle modifications. 6. DVT ppx- lovenox
[2017-07-23] MEDS ORDERED: HEPARIN NA (PORCINE) 5,000 UNITS/ML 1ML VIAL SQ SCH ×2 (10:00→11:59)
--- NOTE | 2017-07-23 11:39 | CON.GI ---
Consult Consult Specialty:: Gastroenterology ( covering Dr Bajwa) Referred by:: Jurgen Ashton NP Reason for Consultation:: Jaundice - History of Present Illness Chief Complaint: Abdominal pain History of Present Illness: 31F was awoken by a constant sharp epigastric pain at 5AM on 07/22. Was seen in the ER where her sonogram and LFTs were unremarkable. She was discharged but returned when the pain recurred after analgesic wore off now associated with vomiting. The pain does not radiate. The vomitus was not bloody. She has never had this pain before. No GI problems. The pain has subsided. - History Source History Provided By: Patient Limitations to Obtaining History: No Limitations - Past Surgical History Past Surgical History: Yes: (x 2) Additional Surgical History: Liposuction - Alcohol/Substance Use Hx Alcohol Use: Yes (rare) - Smoking History Smoking history: Unknown if ever smoked Have you smoked in the past 12 months: No Aproximately how many cigarettes per day: 0 - Social History Usual Living Arrangement: Alone ADL: Independent Occupation: car sales Place of : Other ([place]) Came to [place] (year[place] age 15 History of Recent Travel: No Home Medications - Allergies Allergies/Adverse Reactions: Allergies Allergy/AdvReac Type Severity Reaction Status Date / Time No Known Allergies Allergy Verified 07/22/17 06:47 - Home Medications Home Medications: Ambulatory Orders Omeprazole 20 mg PO DAILY #10 capsule. 07/22/17 Family Disease History - Family Disease History Family Disease History: Other: Father (unknown), Mother (healthy), Sister ( healthy) Review of Systems - Review of Systems Constitutional: reports: No Symptoms Eyes: reports: No Symptoms HENT: reports: No Symptoms Neck: reports: No Symptoms Cardiovascular: reports: No Symptoms Respiratory: reports: No Symptoms Gastrointestinal: reports: Abdominal Pain, Vomiting Genitourinary: reports: No Symptoms Neurological: reports: No Symptoms Physical Exam-GI Vital Signs: Vital Signs Temperature 98.2 F 07/23/17 05:57 Pulse Rate 72 07/23/17 05:57 Respiratory Rate 18 07/23/17 05:57 Blood Pressure 98/55 07/23/17 05:57 O2 Sat by Pulse Oximetry (%) 99 07/23/17 05:57 CBC,CMP WBC 10.9 K/mm3 (4.0-10.0) H 07/23/17 03:30 RBC 4.35 M/mm3 (3.60-5.2) D 07/23/17 03:30 Hgb 12.4 GM/dL (10.7-15.3) D 07/23/17 03:30 Hct 36.9 % (32.4-45.2) D 07/23/17 03:30 MCV 84.8 fl (80-96) 07/23/17 03:30 MCH 28.5 pg (25.7-33.7) 07/23/17 03:30 MCHC 33.7 g/dl (32.0-36.0) 07/23/17 03:30 RDW 15.7 % (11.6-15.6) H 07/23/17 03:30 Plt Count 479 K/MM3 (134-434) H D 07/23/17 03:30 MPV 8.4 fl (7.5-11.1) 07/23/17 03:30 Neutrophils % 87.9 % (42.8-82.8) H 07/23/17 03:30 Lymphocytes % 9.1 % (8-40) D 07/23/17 03:30 Monocytes % 2.4 % (3.8-10.2) L 07/23/17 03:30 Eosinophils % 0.2 % (0-4.5) 07/23/17 03:30 Basophils % 0.4 % (0-2.0) 07/23/17 03:30 Sodium 137 mmol/L (136-145) 07/23/17 03:30 Potassium 4.0 mmol/L (3.5-5.1) 07/23/17 03:30 Chloride 103 mmol/L (98-107) 07/23/17 03:30 Carbon Dioxide 28 mmol/L (21-32) 07/23/17 03:30 Anion Gap 6 (8-16) L 07/23/17 03:30 BUN 7 mg/dL (7-18) 07/23/17 03:30 Creatinine 0.8 mg/dL (0.55-1.02) 07/23/17 03:30 Creat Clearance w eGFR > 60 (>60) 07/23/17 03:30 Random Glucose 111 mg/dL (74-106) H 07/23/17 03:30 Lactic Acid 0.8 mmol/L (0.0-2.0) 07/23/17 06:00 Calcium 8.8 mg/dL (8.5-10.1) 07/23/17 03:30 Total Bilirubin 3.3 mg/dL (0.2-1.0) H D 07/23/17 03:30 AST 239 U/L (15-37) H 07/23/17 03:30 ALT 199 U/L (12-78) H 07/23/17 03:30 Alkaline Phosphatase 193 U/L (45-117) H 07/23/17 03:30 Total Protein 8.2 g/dl (6.4-8.2) 07/23/17 03:30 Albumin 3.8 g/dl (3.4-5.0) 07/23/17 03:30 Triglycerides Cancelled 07/23/17 08:30 Cholesterol Cancelled 07/23/17 08:30 Total LDL Cholesterol Cancelled 07/23/17 08:30 HDL Cholesterol Cancelled 07/23/17 08:30 Lipase 9602 U/L (73-393) H 07/23/17 03:30 Current Medications Generic Name Dose Route Start Last Admin Trade Name Freq PRN Reason Stop Dose Admin Heparin Sodium (Porcine) 5,000 unit 07/23/17 10:00 07/23/17 10:13 Heparin - SQ 5,000 unit Q8H-IV JACOB Administration Lactated Ringer's 1,000 ml in 1,000 mls @ 125 mls/hr 07/23/17 09:00 07/23/17 10:13 Lactated Ringers Solution IV 125 mls/hr ASDIR JACOB Administration Morphine Sulfate 2 mg 07/23/17 07:35 Morphine Injection - IVPUSH Q4H PRN PAIN LEVEL 6-10 Ondansetron HCl 4 mg 07/23/17 07:35 Zofran Injection IVPUSH Q6H PRN NAUSEA Constitutional: Yes: Calm Eyes: Yes: Sclera Icterus HENT: Yes: Atraumatic Neck: Yes: Trachea Midline Cardiovascular: Yes: Regular Rate and Rhythm Respiratory: Yes: CTA Bilaterally Gastrointestinal Inspection: Yes: Scars (healed Pfannensteil and liposuction incisions) ...Auscultate: Yes: Normoactive Bowel Sounds ...Palpate: Yes: Tenderness, Epigastium (mild, no peritoneal signs) ...Rectal Exam: Yes: Guaiac Negative, Sphincter Tone Normal Edema: No Peripheral Pulses WNL: Yes Neurological: Yes: Alert, Oriented ...Motor Strength: WNL Psychiatric: Yes: Alert, Oriented Labs: CBC, BMP 07/23/17 03:30 07/23/17 03:30 Laboratory Tests 06/11/13 09/26/16 07/22/17 00:30 23:40 07:55 WBC Total Bilirubin 0.9 0.6 D 0.7 AST 19 44 H ALT 21 27 Alkaline Phosphatase 110 D 105 Lipase 07/23/17 07/23/17 03:30 03:30 WBC 10.9 H Total Bilirubin 3.3 H D AST 239 H ALT 199 H Alkaline Phosphatase 193 H Lipase 9602 H Imaging - Results Cat Scan: Report Reviewed (Sebastian Jennings Name: LASHANDA ALEXANDER DEPARTMENT OF RADIOLOGY Phys: Jurgen Ashton NP : [id number] Age: 31 Sex: F [facility] Acct: [id number] Loc: [facility] Exam Date: 07/23/17 Status: [place] [address] Unit Number: [id number] EXAM#: TYPE/EXAM: RESULT: [id number] CT/ABDOMEN PELVIS CT WITH CONTR History : abdominal pain CT Scan of the abdomen and pelvis with oral and IV contrast. 100 cc Omnipaque 350 The liver, spleen, adrenal glands are unremarkable. The gallbladder is abnormal Significant amount of surrounding fluid the gallbladder. There is intense enhancement of the gallbladder miranda. Although no gallstones can be identified. Mild amount of the surrounding edema is adjacent to the pancreas. No pancreatic masses identified There is no hydronephrosis, renal masses or renal calculi. There is no retroperitoneal lymphadenopathy. There is no abdominal aortic aneurysm. Small periumbilical hernia There are no inflammatory changes of the colon. The appendix is not identified There are no fluid collections in the abdomen or pelvis. There is no bowel obstruction. The urinary bladder and uterus} are unremarkable. IMPRESSION: Abnormal gallbladder compatible with acute cholecystitis. Inflammation may extend to the pancreas. PRELIMINARY REPORT PROVIDED BY RADIOLOGIST PICKING MACHINE OPERATOR) Problem List - Problems (1) Acute pancreatitis Assessment/Plan: The acute changes in LFTs and abrupt onset jaundice is most consistent with passage of a gallstone into the bile duct causing biliary pancreatitis. The edematous gallbladder wall supports the implication of gallstones. A stone may have transiently obstructed the cystic duct and now the bile duct. I will order an MRCP to confirm this and start empiric therapy with brisk IV fluids and antibiotics. I have discussed the likely need for an ERCP and/or stenting to relieve bile duct obstruction. I have discussed the procedure in detail and informed Lashanda of the potential for such complications as perforation, hemorrhage and ERCP induced pancreatitis which can lead to multiple organ failure. She has signed an informed consent. Idiopathic, hypercalcemia, hyperTGY , autoimmune or other causes of pancreatitis would not be expected to cause such GB wall edema. Alcohol is not a factor as per her history. Dr Bajwa will return tomorrow and assume care for this patient. I will remain available to do the ERCP if/when necessary. Code(s): K85.90 - ACUTE PANCREATITIS WITHOUT NECROSIS OR INFECTION, UNSP Qualifiers: Pancreatitis type: unspecified pancreatitis type Acute pancreatitis complication: unspecified Qualified Code(s): K85.90 - Acute pancreatitis without necrosis or infection, unspecified (2) Jaundice Code(s): R17 - UNSPECIFIED JAUNDICE
[2017-07-23] MEDS: AMPICILLIN NA/SULBACTAM NA 1.5 GM in SODIUM CHLORIDE 100 ML IVPB SCH (18:29)
[2017-07-24] MEDS ORDERED: LACTATED RINGERS SOLUTION 1,000 ML/1,000 ML INFUS.BAG IV SCH ×3 (01:00→07:00)
[2017-07-24] MEDS: AMPICILLIN NA/SULBACTAM NA 1.5 GM in SODIUM CHLORIDE 100 ML IVPB SCH ×3 (01:09→18:00)
[2017-07-24 07:39] LABS: BASO % 0.5 % (0-2.0); EOS % 0.8 % (0-4.5); HEMOGLOBIN 10.3 GM/dL (10.7-15.3); LYMPH % 20.9 % (8-40); MCH 28.2 pg (25.7-33.7); MCHC 33.3 g/dl (32.0-36.0); MEAN CELL VOLUME 84.6 fl (80-96); MEAN PLT VOLUME 8.3 fl (7.5-11.1); MONO % 3.9 % (3.8-10.2); NEUT % 73.9 % (42.8-82.8); PLATELET COUNT 413 K/MM3 (134-434); RBC 3.66 M/mm3 (3.60-5.2); RDW 15.9 % (11.6-15.6)
[2017-07-24 07:41] LABS: INR 1.21 (0.82-1.09); PROTHROMBIN TIME (PATIENT) 13.7 SEC (9.98-11.88)
[2017-07-24 07:59] LABS: BILIRUBIN,DIRECT 0.4 mg/dL (0.0-0.2)
[2017-07-24 08:01] LABS: ALBUMIN 2.8 g/dl (3.4-5.0); ANION GAP 11 (8-16); BLOOD UREA NITROGEN 5 mg/dL (7-18); CALCIUM 8.4 mg/dL (8.5-10.1); CHLORIDE 102 mmol/L (98-107); CO2 24 mmol/L (21-32); GLUCOSE,RANDOM 61 mg/dL (74-106); PHOSPHOROUS 3.5 mg/dL (2.5-4.9); POTASSIUM 3.6 mmol/L (3.5-5.1); SGOT/AST 97 U/L (15-37); SGPT/ALT 150 U/L (12-78); SODIUM 137 mmol/L (136-145)
[2017-07-24 08:05] LABS: ALK PHOS 178 U/L (45-117); BILIRUBIN,TOTAL 1.3 mg/dL (0.2-1.0); CREATININE 0.6 mg/dL (0.55-1.02); TOT PROT 6.3 g/dl (6.4-8.2)
--- NOTE | 2017-07-24 11:18 | CONSULT ---
- Consultation REQUESTING PROVIDER: Rakan MCMANUS CONSULT REQUEST: We have been asked to surgically evaluate this patient for possible choledocholithiasis. PCP:Allie Bledsoe HISTORY OF PRESENT ILLNESS: 31 y/o A/A female presented to the ER 07/22/17 w/ nausea and vomiting and abdominal pain; w/u was done and she was txed and d/c' ed w/ a dx of gastritis; she returned to the ER 07/23/17 w/o improvement and worsening symptoms and w/u revealed elevated tranaminases and bili; original GB US done 07/22/[address] a/p was ? c/w ? acute cholecystitis and ? choledocholithiasis; she was admitted and feels better since admission; ongoing w/u is in progress. PMHx: none PSHx: C-S ; liposuction Home Medications Medication Instructions Recorded Omeprazole 20 mg PO DAILY #10 capsule. 07/22/17 Allergies Allergy/AdvReac Type Severity Reaction Status Date / Time No Known Allergies Allergy Verified 07/22/17 06:47 PHYSICAL EXAM: GENERAL: Awake, alert, and fully oriented, in no acute distress. HEAD: Normal with no signs of trauma. EYES: sclera anicteric, conjunctiva clear. NECK: Normal ROM, supple without lymphadenopathy, JVD, or masses. ABDOMEN: Soft, nontender, not distended, normoactive bowel sounds, no guarding, no rebound, no masses. No organomegaly. ? hernia at the umbilicus. MUSCULOSKELETAL: Normal ROM at all joints. No bony deformities or tenderness. No CVA tenderness. UPPER EXTREMITIES: 2+ pulses, warm, well-perfused. No cyanosis. Cap refill <2 seconds. No peripheral edema. LOWER EXTREMITIES: 2+ pulses, warm, well-perfused. No calf tenderness. No peripheral edema. NEUROLOGICAL: Normal speech, gait not observed. PSYCH: Cooperative. Good eye contact. Appropriate mood and affect. SKIN: Warm, dry, normal turgor, no rashes or lesions noted. Vital Signs Temperature 98.3 F 07/24/17 06:21 Pulse Rate 85 07/24/17 06:21 Respiratory Rate 20 07/24/17 06:21 Blood Pressure 88/52 07/24/17 06:21 O2 Sat by Pulse Oximetry (%) 99 07/23/17 05:57 Lab Results WBC 8.0 K/mm3 (4.0-10.0) 07/24/17 06:30 RBC 3.66 M/mm3 (3.60-5.2) 07/24/17 06:30 Hgb 10.3 GM/dL (10.7-15.3) L D 07/24/17 06:30 Hct 31.0 % (32.4-45.2) L D 07/24/17 06:30 MCV 84.6 fl (80-96) 07/24/17 06:30 MCHC 33.3 g/dl (32.0-36.0) 07/24/17 06:30 RDW 15.9 % (11.6-15.6) H 07/24/17 06:30 Plt Count 413 K/MM3 (134-434) 07/24/17 06:30 Sodium 137 mmol/L (136-145) 07/24/17 06:30 Potassium 3.6 mmol/L (3.5-5.1) 07/24/17 06:30 Chloride 102 mmol/L (98-107) 07/24/17 06:30 Carbon Dioxide 24 mmol/L (21-32) 07/24/17 06:30 Anion Gap 11 (8-16) 07/24/17 06:30 BUN 5 mg/dL (7-18) L 07/24/17 06:30 Creatinine 0.6 mg/dL (0.55-1.02) 07/24/17 06:30 Random Glucose 61 mg/dL (74-106) L 07/24/17 06:30 Calcium 8.4 mg/dL (8.5-10.1) L 07/24/17 06:30 INR 1.21 (0.82-1.09) H 07/24/17 06:30 W/u to date reviewed; imaging studies and labs reviewed. IMP: choleldocholithiasis ???; resolved cholelithiasis ??? PLAN: Continue present tx,; will f/u; will most likely need lap basilio once w/u cmplete; d/w patient. Imtiaz Lehman MD FACS Visit type - Case Type Case Type: ED Admission - Emergency Emergency Visit: Yes ED Registration Date: 07/23/17 Care time: The patient presented to the Emergency Department on the above date and was hospitalized for further evaluation of their emergent condition. - New patient This patient is new to me today: Yes Date on this admission: 07/24/17 - Critical Care Critical Care patient: No
--- NOTE | 2017-07-24 13:44 | PN ---
Progress Note, Physician History of Present Illness: No events. Remains NPO Awaiting MRCP - Current Medication List Current Medications: Active Medications Ampicillin Sodium/Sulbactam (Sodium 1.5 gm/ Sodium Chloride) 100 mls @ 200 mls/ hr IVPB Q8H-IV JACOB Last Admin: 07/24/17 10:42 Dose: 200 mls/hr Metronidazole (Flagyl 500mg Premixed Ivpb -) 500 mg in 100 mls @ 100 mls/hr IVPB Q8H-IV JACOB Last Admin: 07/24/17 10:42 Dose: 100 mls/hr Lactated Ringer's (Lactated Ringers Solution) 1,000 ml in 1,000 mls @ 150 mls/ hr IV ASDIR JACOB Morphine Sulfate (Morphine Injection -) 2 mg IVPUSH Q4H PRN PRN Reason: PAIN LEVEL 6-10 Ondansetron HCl (Zofran Injection) 4 mg IVPUSH Q6H PRN PRN Reason: NAUSEA - Objective Vital Signs: Vital Signs Temperature 98.3 F 07/24/17 06:21 Pulse Rate 85 07/24/17 06:21 Respiratory Rate 20 07/24/17 06:21 Blood Pressure 88/52 07/24/17 06:21 O2 Sat by Pulse Oximetry (%) 99 07/23/17 05:57 Constitutional: Yes: Well Nourished, No Distress, Calm Eyes: Yes: Conjunctiva Clear HENT: Yes: Atraumatic Neck: Yes: Supple Cardiovascular: Yes: Regular Rate and Rhythm Respiratory: Yes: Regular Gastrointestinal: Yes: Soft. No: Tenderness, Epigastrium Neurological: Yes: Alert, Oriented Labs: CBC, BMP 07/24/17 06:30 07/24/17 06:30 INR, PTT INR 1.21 (0.82-1.09) H 07/24/17 06:30 CBCD WBC 8.0 K/mm3 (4.0-10.0) 07/24/17 06:30 RBC 3.66 M/mm3 (3.60-5.2) 07/24/17 06:30 Hgb 10.3 GM/dL (10.7-15.3) L D 07/24/17 06:30 Hct 31.0 % (32.4-45.2) L D 07/24/17 06:30 MCV 84.6 fl (80-96) 07/24/17 06:30 MCHC 33.3 g/dl (32.0-36.0) 07/24/17 06:30 RDW 15.9 % (11.6-15.6) H 07/24/17 06:30 Plt Count 413 K/MM3 (134-434) 07/24/17 06:30 MPV 8.3 fl (7.5-11.1) 07/24/17 06:30 CMP Sodium 137 mmol/L (136-145) 07/24/17 06:30 Potassium 3.6 mmol/L (3.5-5.1) 07/24/17 06:30 Chloride 102 mmol/L (98-107) 07/24/17 06:30 Carbon Dioxide 24 mmol/L (21-32) 07/24/17 06:30 Anion Gap 11 (8-16) 07/24/17 06:30 BUN 5 mg/dL (7-18) L 07/24/17 06:30 Creatinine 0.6 mg/dL (0.55-1.02) 07/24/17 06:30 Creat Clearance w eGFR > 60 (>60) 07/24/17 06:30 Calcium 8.4 mg/dL (8.5-10.1) L 07/24/17 06:30 Total Bilirubin 1.3 mg/dL (0.2-1.0) H D 07/24/17 06:30 AST 97 U/L (15-37) H 07/24/17 06:30 ALT 150 U/L (12-78) H 07/24/17 06:30 Alkaline Phosphatase 178 U/L (45-117) H 07/24/17 06:30 Total Protein 6.3 g/dl (6.4-8.2) L 07/24/17 06:30 Albumin 2.8 g/dl (3.4-5.0) L 07/24/17 06:30 Problem List - Problems (1) Gallstone pancreatitis Code(s): K85.10 - BILIARY ACUTE PANCREATITIS WITHOUT NECROSIS OR INFECTION (2) Cholelithiases Code(s): K80.20 - CALCULUS OF GALLBLADDER W/O CHOLECYSTITIS W/O OBSTRUCTION (3) Acute pancreatitis Code(s): K85.90 - ACUTE PANCREATITIS WITHOUT NECROSIS OR INFECTION, UNSP Qualifiers: Pancreatitis type: unspecified pancreatitis type Acute pancreatitis complication: unspecified Qualified Code(s): K85.90 - Acute pancreatitis without necrosis or infection, unspecified Assessment/Plan Continue current care. MRCP pending clinically improved liver chemistry improved Imaging showed cholelithiasis Sx eval appreciated
--- NOTE | 2017-07-24 17:02 | PN ---
Physical Exam: SUBJECTIVE: Patient seen and examined. Abdomen is now diffusely and mildly tender. Pt reports feeling a little bit better and wanting to eat. Pt denies chest pain, sob, fever, chills. OBJECTIVE: Vital Signs Period Temp Pulse Resp BP Sys/Stanley Pulse Ox Last 24 Hr 98.3 F-98.4 F 80-85 20-20 88-98/52-60 99 GENERAL: The patient is awake, alert, and fully oriented, in no acute distress. LUNGS: Breath sounds equal, clear to auscultation bilaterally, no wheezes, no crackles, no accessory muscle use. HEART: Regular rate and rhythm, S1, S2 without murmur, rub or gallop. ABDOMEN: diffusely tender to palpation. Soft, nondistended, no guarding. EXTREMITIES: Warm, well-perfused, no edema. PSYCH: Normal mood, normal affect. SKIN: Warm, dry, normal turgor, no rashes or lesions noted Laboratory Results - last 24 hr 07/24/17 07/24/17 07/24/17 06:30 06:30 06:30 WBC 8.0 RBC 3.66 Hgb 10.3 L D Hct 31.0 L D MCV 84.6 MCH 28.2 MCHC 33.3 RDW 15.9 H Plt Count 413 MPV 8.3 Neutrophils % 73.9 Lymphocytes % 20.9 D Monocytes % 3.9 Eosinophils % 0.8 D Basophils % 0.5 PT with INR INR Sodium 137 Potassium 3.6 Chloride 102 Carbon Dioxide 24 Anion Gap 11 BUN 5 L Creatinine 0.6 Creat Clearance w eGFR > 60 Random Glucose 61 L Calcium 8.4 L Phosphorus 3.5 Magnesium 2.0 Total Bilirubin 1.3 H D Direct Bilirubin 0.4 H AST 97 H ALT 150 H Alkaline Phosphatase 178 H C-Reactive Protein 4.9 H Total Protein 6.3 L Albumin 2.8 L Total Amylase 159 H Lipase 192 07/24/17 06:30 WBC RBC Hgb Hct MCV MCH MCHC RDW Plt Count MPV Neutrophils % Lymphocytes % Monocytes % Eosinophils % Basophils % PT with INR 13.70 H INR 1.21 H Sodium Potassium Chloride Carbon Dioxide Anion Gap BUN Creatinine Creat Clearance w eGFR Random Glucose Calcium Phosphorus Magnesium Total Bilirubin Direct Bilirubin AST ALT Alkaline Phosphatase C-Reactive Protein Total Protein Albumin Total Amylase Lipase Active Medications Generic Name Dose Route Start Last Admin Trade Name Freq PRN Reason Stop Dose Admin Ampicillin Sodium/Sulbactam 100 mls @ 200 mls/hr 07/23/17 18:00 07/24/17 10: 42 Sodium 1.5 gm/ Sodium Chloride IVPB 200 mls/hr Q8H-IV JACOB Administration Metronidazole 500 mg in 100 mls @ 100 mls/hr 07/23/17 18:00 07/24/17 10:42 Flagyl 500mg Premixed Ivpb - IVPB 100 mls/hr Q8H-IV JACOB Administration Lactated Ringer's 1,000 ml in 1,000 mls @ 150 mls/hr 07/24/17 07:00 Lactated Ringers Solution IV ASDIR JACOB Morphine Sulfate 2 mg 07/23/17 07:35 Morphine Injection - IVPUSH Q4H PRN PAIN LEVEL 6-10 Ondansetron HCl 4 mg 07/23/17 07:35 Zofran Injection IVPUSH Q6H PRN NAUSEA Pantoprazole Sodium 20 mg 07/25/17 10:00 Protonix - PO DAILY JACOB IMAGIN07/24/17 MRCP -> cholelithiasis with acute cholecystitis. Peripancreatic edema suggestive of pancreatitis sans evidence of pancreatitic tissue necrosis, pancreatic ductal dilation or pseudocyst formation. No choledocholelithiasis or pancreaticobilary ductal dilation. ASSESSMENT/PLAN: 31F with no significant PMH presents with epigastric pain, admitted for acute pancreatitis. # acute pancreatitis - IVFs - pain management with morphine prn # acute cholecystitis - Surgery Consult - may remove gallbladder during this adm - Day 2 of IV Unasyn and IV Flagyl # hyperbilirubinemia - likely 2/2 passed gallstone - trending down # acute anemia - likely dilutional - no overt s/s of bleeding - monitor cbc # FEN - Fluids: LR @ 150 ml/hr - Electrolytes: wnl, continue to monitor - Nutrition: clear liquids, npo after midnight for possible surgery tomorrow # Prophylaxis - DVT ppx with Heparin TID - deconditioning ppx with PT Visit type - Emergency Visit Emergency Visit: Yes ED Registration Date: 07/23/17 Care time: The patient presented to the Emergency Department on the above date and was hospitalized for further evaluation of their emergent condition. - New Patient This patient is new to me today: Yes Date on this admission: 07/24/17 - Critical Care Critical Care patient: No
--- NOTE | 2017-07-24 17:15 | PN ---
Teaching Attending Note Name of Resident: Cecy Andrew ATTENDING PHYSICIAN STATEMENT I saw and evaluated the patient. I reviewed the resident's note and discussed the case with the resident. I agree with the resident's findings and plan as documented. SUBJECTIVE:states pain has resolved. requesting to eat. denies Cp, SOB, fver, chills, N/V/C/D OBJECTIVE: Last Vital Signs Temp Pulse Resp BP Pulse Ox 98.3 F 80 20 98/60 99 07/24/17 10:00 07/24/17 10:00 07/24/17 10:00 07/24/17 10:07/24/17 09:00 General NAD Lungs CTA B/L no wheezing/rales/rhonchi Abdomen diffusely tender, -mckeon sign. soft , ND, normoactive BS, obese ASSESSMENT AND PLAN: 31yo F with no PMH presenting with epigastric pain x2 days 1. Acute Pancreatitis-clinically improved. diffuse tenderness on exam. will cont NPO for now, will re-assess later if can advance diet. MRCP pending. Surgical consult as will need GB out this admission. 2. Acute cholecystitis- on Unasyn/Flagyl day 2. cont abx for now. can stop after cholecystectomy 3. Hyperbilirubinemia- bilirubinemia trending down. likely due to passed stone. 4. Acute anemia- acute drop in Hgb. likely dilutional. no signs of bleeding. will monitor. 5. Thrombophilia- likely reactive. now resolved. 6. Obese- lifestyle modifications. 7. DVT ppx- lovenox
[2017-07-24] MEDS: LACTATED RINGERS SOLUTION 1,000 ML/1,000 ML INFUS.BAG IV SCH (18:01)
[2017-07-24] MEDS: HEPARIN NA (PORCINE) 5,000 UNITS/ML 1ML VIAL SQ SCH (21:40)
[2017-07-25] MEDS: AMPICILLIN NA/SULBACTAM NA 1.5 GM in SODIUM CHLORIDE 100 ML IVPB SCH ×2 (02:27→10:34)
[2017-07-25] MEDS: LACTATED RINGERS SOLUTION 1,000 ML/1,000 ML INFUS.BAG IV SCH ×3 (04:44→18:04)
[2017-07-25] MEDS: HEPARIN NA (PORCINE) 5,000 UNITS/ML 1ML VIAL SQ SCH ×3 (06:09→21:05)
[2017-07-25 07:56] LABS: BASO % 0.7 % (0-2.0); EOS % 2.1 % (0-4.5); HEMATOCRIT 31.3 % (32.4-45.2); HEMOGLOBIN 10.6 GM/dL (10.7-15.3); LYMPH % 28.8 % (8-40); MCH 28.4 pg (25.7-33.7); MEAN CELL VOLUME 83.7 fl (80-96); MEAN PLT VOLUME 8.3 fl (7.5-11.1); MONO % 5.6 % (3.8-10.2); NEUT % 62.8 % (42.8-82.8); PLATELET COUNT 431 K/MM3 (134-434); RBC 3.74 M/mm3 (3.60-5.2); RDW 15.7 % (11.6-15.6); WHITE BLOOD COUNT 6.1 K/mm3 (4.0-10.0)
[2017-07-25 08:19] LABS: ALBUMIN 3.1 g/dl (3.4-5.0); ANION GAP 10 (8-16); BLOOD UREA NITROGEN 4 mg/dL (7-18); CALCIUM 8.9 mg/dL (8.5-10.1); CHLORIDE 104 mmol/L (98-107); CO2 25 mmol/L (21-32); CREATININE 0.6 mg/dL (0.55-1.02); GLUCOSE,RANDOM 76 mg/dL (74-106); POTASSIUM 3.9 mmol/L (3.5-5.1); SGOT/AST 44 U/L (15-37); SGPT/ALT 104 U/L (12-78); SODIUM 139 mmol/L (136-145)
[2017-07-25 08:21] LABS: ALK PHOS 152 U/L (45-117); TOT PROT 6.7 g/dl (6.4-8.2)
--- NOTE | 2017-07-25 08:29 | PN ---
Progress Note (short form) - Note Progress Note: Attending Surgeon No c/o VSS AF abdomen benign LFT's and bili normalizing MRCP reviewed IMP: doing well PLAN: lap basilio possible open today; r/b/t/a's d/w the patient and informed consent obtained. Imtiaz Lehman MD FACS
[2017-07-25] MEDS ORDERED: PANTOPRAZOLE 20 MG TABLET (FP) PO SCH (10:00)
[2017-07-25] MEDS ORDERED: PT OWN MED DRAWER 7, Y5N ONE (10:32)
[2017-07-25] MEDS ORDERED: HYDROmorphone HCL CARPU-JECT 1 MG/1 ML DISP.SYRIN IVPUSH PRN ×2 (11:15→13:50)
[2017-07-25] MEDS ORDERED: fentaNYL CITRATE 250 MCG/5 ML VIAL ONE (11:18)
[2017-07-25] MEDS ORDERED: MIDAZOLAM HCL 2 MG/2 ML SINGLE DOSE VIAL ONE (11:18)
[2017-07-25] MEDS ORDERED: LIDOCAINE HCL/PF 2% SDV 5ML VIAL ONE (11:18)
[2017-07-25] MEDS ORDERED: PROPOFOL 20 ML ONE (11:18)
[2017-07-25] MEDS ORDERED: ROCURONIUM BROMIDE 50 MG/5 ML VIAL ONE ×2 (11:18→12:22)
[2017-07-25] MEDS ORDERED: DEXAMETHASONE SOD PHOSPHATE 4 MG/1 ML VIAL ONE (11:44)
[2017-07-25] MEDS ORDERED: BUPIVACAINE HCL/PF 0.5% (5MG/ML) 10 ML VIAL IJ ONE (11:49)
[2017-07-25] MEDS ORDERED: NEOSTIGMINE METHYLSULFATE 0.5 MG/ML - 10 ML MDV ONE (12:40)
[2017-07-25] MEDS ORDERED: GLYCOPYRROLATE 0.2 MG/1 ML VIAL ONE (12:40)
--- NOTE | 2017-07-25 12:49 | OP ---
Operative Note - Note: Operative Date: 07/25/17 Pre-Operative Diagnosis: cholecystitis/cholelithiasis/?choledocholithiasis Operation: lap basilio Findings: acute inflammation of the gallbladder and cholelithiasis. Post-Operative Diagnosis: Same as Pre-op Surgeon: Imtiaz Lehman Economics Analyst: Ivelisse Bansal Anesthesiologist/CHIEF WELLNESS OFFICER: Chelsi Tinsley Anesthesia: General Specimens Removed: gallbladder and contents Estimated Blood Loss (mls): 20 Operative Report Dictated: Yes
[2017-07-25] MEDS ORDERED: IBUPROFEN 800 MG/8 ML IJ IVPB PRN ×2 (13:11→13:50)
[2017-07-25] MEDS ORDERED: ONDANSETRON 4 MG/2 ML VIAL IVPUSH PRN (13:50)
[2017-07-25] MEDS ORDERED: MORPHINE SULFATE 10 MG/1 ML *VIAL IVPUSH PRN (13:50)
--- NOTE | 2017-07-25 14:58 | PN ---
<Cecy Andrew - Last Filed: 07/25/17 14:48> Physical Exam: SUBJECTIVE: Patient seen and examined. Pt reports mild abdominal pain improved from yesterday, tolerated clear liquids diet. Pt s/p cholecystectomy today, uneventful. Pt denies chest pain, sob, fever, chills. OBJECTIVE: Vital Signs Period Temp Pulse Resp BP Sys/Stanley Pulse Ox Last 24 Hr 98.3 F-98.5 F 66-80 16-20 84-114/54-66 99-99 GENERAL: The patient is awake, alert, and fully oriented, in no acute distress. LUNGS: Breath sounds equal, clear to auscultation bilaterally, no wheezes, no crackles, no accessory muscle use. HEART: Regular rate and rhythm, S1, S2 without murmur, rub or gallop. ABDOMEN: diffusely mildly tender to palpation. Soft, nondistended, no guarding. EXTREMITIES: Warm, well-perfused, no edema. PSYCH: Normal mood, normal affect. SKIN: Warm, dry, normal turgor, no rashes or lesions noted Laboratory Results - last 24 hr 07/25/17 07/25/17 07/25/17 06:30 06:30 06:30 WBC 6.1 RBC 3.74 Hgb 10.6 L Hct 31.3 L MCV 83.7 MCH 28.4 MCHC 34.0 RDW 15.7 H Plt Count 431 MPV 8.3 Neutrophils % 62.8 Lymphocytes % 28.8 D Monocytes % 5.6 Eosinophils % 2.1 D Basophils % 0.7 Sodium 139 Potassium 3.9 Chloride 104 Carbon Dioxide 25 Anion Gap 10 BUN 4 L Creatinine 0.6 Creat Clearance w eGFR > 60 Random Glucose 76 Calcium 8.9 Total Bilirubin 1.0 D Direct Bilirubin 0.3 H AST 44 H ALT 104 H Alkaline Phosphatase 152 H Total Protein 6.7 Albumin 3.1 L Active Medications Generic Name Dose Route Start Last Admin Trade Name Freq PRN Reason Stop Dose Admin Fentanyl 50 mcg 07/25/17 13:50 Sublimaze Injection - IVPUSH [id number] PRN PAIN-PACU ORDER X 4 DOSES ONLY Heparin Sodium (Porcine) 5,000 unit 07/25/17 14:00 Heparin - SQ TID JACOB Hydromorphone HCl 1 mg 07/25/17 13:50 Dilaudid Injection - IVPUSH [id number] PRN PAIN-PACU ORDER X 4 DOSES ONLY Ampicillin Sodium/Sulbactam 100 mls @ 200 mls/hr 07/25/17 18:00 Sodium 1.5 gm/ Sodium Chloride IVPB Q8H-IV JACOB Lactated Ringer's 1,000 ml in 1,000 mls @ 150 mls/hr 07/25/17 13:50 Lactated Ringers Solution IV ASDIR JACOB Metronidazole 500 mg in 100 mls @ 100 mls/hr 07/25/17 18:00 Flagyl 500mg Premixed Ivpb - IVPB Q8H-IV JACOB Ibuprofen 800 mg 07/25/17 13:50 Caldolor Injection - IVPB Q6H PRN Pain - Pacu Morphine Sulfate 2 mg 07/25/17 13:50 Morphine Injection - IVPUSH Q4H PRN PAIN LEVEL 6-10 Ondansetron HCl 4 mg 07/25/17 13:50 Zofran Injection IVPUSH Q6H PRN NAUSEA Pantoprazole Sodium 20 mg 07/26/17 10:00 Protonix - PO DAILY JACOB ASSESSMENT/PLAN: 31F with no significant PMH presents with epigastric pain, admitted for acute pancreatitis. # acute pancreatitis - IVFs - pain management # acute cholecystitis - s/p cholecystectomy today with Dr. Lehman - Day 3 of IV Unasyn and IV Flagyl - pain control with Morphine, Dilaudid and Ibuprofen prn # hyperbilirubinemia - likely 2/2 passed gallstone - trending down # acute anemia - likely dilutional - no overt s/s of bleeding - hgb stable # FEN - Fluids: LR @ 150 ml/hr - Electrolytes: wnl, continue to monitor - Nutrition: clear liquids # Prophylaxis - DVT ppx with Heparin TID - deconditioning ppx with PT Visit type - Emergency Visit Emergency Visit: Yes ED Registration Date: 07/23/17 Care time: The patient presented to the Emergency Department on the above date and was hospitalized for further evaluation of their emergent condition. - New Patient This patient is new to me today: No - Critical Care Critical Care patient: No <Greg,Kunal - Last Filed: 07/25/17 18:27> Physical Exam: Patient seen and examined with Dr. Andrew at 10:30 AM and again at 5:30 PM. Agree with above findings and plan of care with exceptions mentioned below. O/E: 10:30 AM Abdomen: soft, epigastric/RUQ/LUQ tenderness, no voluntary or involuntary guarding or rigidity, positive bowel sounds, extremities: no edema GEneral: in no acute distress Re-exam at 5:30 PM GEneral: no acute distress, no stridor appreciated HEENT: edema with trauma to uvula base with prolonged uvula, no pharngeal edema or erythema noted AbdomeN; post op, minimal soreness around surgical site, mild upper abdominal tenderness as above, positive bowel sounds Assessment/Plan: -Acute gall stone pancreatitis -Acute cholecystitis -Post operative uvular edema with trauma PLan: S/p Lap CCY, Post operative sore throat with some dyspnea, uvular findings as above. Patient seen by ICU and anesthesia. Plan for solumedrol/Benadryl. epi IM x 1. suspect traumatic rather than anaphylactic but will need close monitoring. If persistent, decadron and ENT input ICU transfer if worsens, stridor or respiratory decompensation. NPO for now. Continue IVF and monitor hemodynamics closely. Plan discussed with patient and RN in detail. Total time spent including discussion with RN, anesthesia, ICU, and co- ordination of care and patient visit x 2 45 including 20 minutes critical care time at bedside.
--- NOTE | 2017-07-25 15:47 | SURG ---
Surgery Casting House Worker Note Casting House Worker: Ivelisse Bansal PA-C Date of Service: 07/25/17 Diagnosis: cholecystitis/cholelithiasis/?choledocholithiasis Procedure: laparoscopic cholecystectomy I was present for the entirety of the operative procedure. For further detail, please refer to operative report. Visit type - Case Type Case Type: ED Admission - Emergency Emergency Visit: Yes ED Registration Date: 07/23/17 Care time: The patient presented to the Emergency Department on the above date and was hospitalized for further evaluation of their emergent condition. - New patient This patient is new to me today: Yes Date on this admission: 07/25/17
[2017-07-25] MEDS ORDERED: oxyCODONE HCL 5 MG TABLET PO PRN (15:48)
[2017-07-25] MEDS ORDERED: ACETAMINOPHEN 325 MG TABLET (FP) PO PRN (15:48)
[2017-07-25] MEDS ORDERED: methylPREDNISolone NA SUCC 125 MG/2 ML VIAL IVPUSH ONE (17:01)
[2017-07-25] MEDS ORDERED: methylPREDNISolone NA SUCC 125 MG/2 ML VIAL ONE (17:02)
[2017-07-25] MEDS ORDERED: EPINEPHrine 1:1,000 0.3 MG/0.3 ML SYR IM ONE (17:15)
[2017-07-25] MEDS ORDERED: EPINEPHrine 1:1,000 1 MG/1 ML - 30ML VIAL (INJECTION) ONE (17:29)
[2017-07-25] MEDS ORDERED: EPINEPHrine 1:1,000 - 30 MG/30 ML VIAL IM ONE (17:30)
--- NOTE | 2017-07-25 17:40 | PN ---
Progress Note (short form) - Note Progress Note: ANESTHESIOLOGY Called to see pt s/p lap basilio under GA d/t c/o sore throat and swollen uvula. Pt reports a choking sensation when supine. On inspection pts' uvula is elongated with swelling at the base. No apparent ulceration. Recommend steroid (which are already being given) and ice chips may alleviate some of the discomfort. Recommend ENT consult tomorrow if no improvement. Please do not hesitate to page if needed.
--- NOTE | 2017-07-25 17:40 | CONSULT ---
Consult Consult Specialty:: Pulm/CCM Referred by:: Dr. Garza & Dr. Hermosillo Reason for Consultation:: Uvular edema. and shortness of breath - History of Present Illness Chief Complaint: difficulty swallowing History of Present Illness: Patient is a 31F with no PMH who presented to the hospital with abdominal pain found to have pancreatitia and then gallstones causing gallstone pancreatitis and patient is POD#0 s/p cholecystectomy. Post op the patient has been complaining of dysphagia and positional shortness of breath. She was noted by the primary team to have uvular edema and ICU team called to evaluate patient. patient is complaining of some difficulty swallowing. She is currently able to speak in full sentences and does not seem in distress. She states she is comfortable while laying down and gets some shortness of breath when she sits up. She otherwise feels fine except some minor post-op pain. Patient seen by anesthesia who recommended solu-medrol and giving the patient ice chips and they will re-evaluate the patient later today. If she does not improve the recommend ENT for evaluation. She currently denies nausea, vomiting, fevers, chills, chest pain, or urinary symptoms. She denies any major changes of her voice. Patient is currently hemodynamically stable and is not in respiratory distress. - History Source History Provided By: Patient - Past Medical History Additional Medical History: morbid obesity - Past Surgical History Past Surgical History: Yes: Cholecystectomy (07/25/2017 ), (x 2) Additional Surgical History: Liposuction - Alcohol/Substance Use Hx Alcohol Use: Yes (rare) - Smoking History Smoking history: Unknown if ever smoked Have you smoked in the past 12 months: No Aproximately how many cigarettes per day: 0 - Social History Usual Living Arrangement: Alone ADL: Independent Occupation: car sales History of Recent Travel: No Home Medications - Allergies Allergies/Adverse Reactions: Allergies Allergy/AdvReac Type Severity Reaction Status Date / Time No Known Allergies Allergy Verified 07/22/17 06:47 - Home Medications Home Medications: Ambulatory Orders Omeprazole 20 mg PO DAILY #10 capsule. 07/22/17 Family Disease History - Family Disease History Family Disease History: Other: Father (unknown), Mother (healthy), Sister ( healthy) Review of Systems - Review of Systems Constitutional: reports: No Symptoms Eyes: reports: No Symptoms HENT: reports: Other (chking sensation when supine) Neck: reports: No Symptoms Cardiovascular: reports: No Symptoms Respiratory: reports: SOB Gastrointestinal: reports: Abdominal Pain Genitourinary: reports: No Symptoms Musculoskeletal: reports: No Symptoms Neurological: reports: No Symptoms Physical Exam Vital Signs: Vital Signs Temperature 98.5 F 07/25/17 15:20 Pulse Rate 74 07/25/17 15:20 Respiratory Rate 16 07/25/17 15:20 Blood Pressure 101/64 07/25/17 15:20 O2 Sat by Pulse Oximetry (%) 99 07/25/17 15:05 Constitutional: Yes: No Distress, Calm Eyes: Yes: Conjunctiva Clear HENT: Yes: Atraumatic, Hoarseness (minor), Other (base of uvula edematous. distal portion of uvular does not have edema. no stridor.) Neck: Yes: Supple Cardiovascular: Yes: Regular Rate and Rhythm Respiratory: Yes: CTA Bilaterally, Other (aboe to speak in full sentences without any respiratory distress). No: Accessory Muscle Use, Cough, Stridor Gastrointestinal: Yes: Soft, Tenderness (appropriately) Edema: No Labs: CBC, BMP 07/25/17 06:30 07/25/17 06:30 Imaging - Results MRI: Report Reviewed, Image Reviewed Assessment/Plan 31F with no PMH POD#0 s/p cholecystectomy now with uvular edema and dysphagia post-op after being intubated for the cholecystectomy. Problem List: Acute cholecystitis possible Choledocholithiasis Gall stone pancreatitis Obesity Uvular edema secondary to trauma from intubation dysphagia Shortness of breath Plan: Patient given Medrol 125mg patient is currently hemodynamically stable and able to speak in full sentences without any respiratory distress Consider continuing with Decadron patient seen by anesthesia and given Ice chips as well to help soothe symptoms If patient worsens and/or becomes stridorous Will transfer to ICU Patient to be re-evaluated later today by anesthesia if uvular edema persists consider ENT evaluation in AM rest of care per primary medical team and surgical team Case discussed with Attending Dr. Hansen
[2017-07-25] MEDS ORDERED: AMPICILLIN NA/SULBACTAM NA 1.5 GM in SODIUM CHLORIDE 100 ML IVPB SCH (18:00)
--- NOTE | 2017-07-25 20:20 | PN ---
Progress Note (short form) - Note Progress Note: ANESTHESIOLOGY Pt reports symptoms unchanged. Appearance of uvula and soft palate unchanged degree of edema bu there does appear to be some ulceration on left side of base of uvula. Recommend ENT consult in AM.
[2017-07-25] MEDS: DEXAMETHASONE SOD PHOSPHATE 10 MG/1 ML VIAL IVPUSH SCH (20:47)
[2017-07-26] MEDS: DEXAMETHASONE SOD PHOSPHATE 10 MG/1 ML VIAL IVPUSH SCH ×2 (02:24→09:37)
[2017-07-26] MEDS: LACTATED RINGERS SOLUTION 1,000 ML/1,000 ML INFUS.BAG IV SCH ×3 (04:43→22:14)
[2017-07-26] MEDS: HEPARIN NA (PORCINE) 5,000 UNITS/ML 1ML VIAL SQ SCH ×3 (06:28→22:03)
[2017-07-26 07:44] LABS: BASO % 0.2 % (0-2.0); HEMATOCRIT 32.2 % (32.4-45.2); HEMOGLOBIN 10.9 GM/dL (10.7-15.3); MCH 28.5 pg (25.7-33.7); MCHC 33.8 g/dl (32.0-36.0); MEAN CELL VOLUME 84.4 fl (80-96); MEAN PLT VOLUME 8.5 fl (7.5-11.1); MONO % 0.9 % (3.8-10.2); NEUT % 89.9 % (42.8-82.8); PLATELET COUNT 450 K/MM3 (134-434); RBC 3.81 M/mm3 (3.60-5.2); RDW 15.9 % (11.6-15.6); WHITE BLOOD COUNT 12.4 K/mm3 (4.0-10.0)
[2017-07-26 08:26] LABS: ALBUMIN 3.3 g/dl (3.4-5.0); ANION GAP 8 (8-16); BLOOD UREA NITROGEN 5 mg/dL (7-18); CALCIUM 8.9 mg/dL (8.5-10.1); CHLORIDE 104 mmol/L (98-107); CO2 26 mmol/L (21-32); CREATININE 0.7 mg/dL (0.55-1.02); GLUCOSE,RANDOM 130 mg/dL (74-106); POTASSIUM 4.5 mmol/L (3.5-5.1); SGOT/AST 54 U/L (15-37); SGPT/ALT 101 U/L (12-78); SODIUM 138 mmol/L (136-145)
[2017-07-26 08:27] LABS: ALK PHOS 155 U/L (45-117); BILIRUBIN,TOTAL 0.8 mg/dL (0.2-1.0); TOT PROT 7.1 g/dl (6.4-8.2)
[2017-07-26] MEDS ORDERED: PT OWN MED DRAWER 7, Y5N ONE (09:28)
[2017-07-26] MEDS: oxyCODONE HCL 5 MG TABLET PO PRN ×2 (09:30→14:17)
[2017-07-26] MEDS: ACETAMINOPHEN 325 MG TABLET (FP) PO PRN ×2 (09:31→14:17)
[2017-07-26] MEDS: PANTOPRAZOLE 20 MG TABLET (FP) PO SCH (09:37)
--- NOTE | 2017-07-26 09:54 | PN ---
Progress Note, Physician Chief Complaint: s/p lap cholecystectomy under general anesthesia History of Present Illness: post op day one. pt complianng of swollen uvela and sore throat. Uvela bothering her breathing overnight - Current Medication List Current Medications: Active Medications Acetaminophen (Tylenol -) 325 mg PO Q4H PRN PRN Reason: PAIN LEVEL 1-5 Last Admin: 07/25/17 20:45 Dose: 325 mg Acetaminophen (Tylenol -) 650 mg PO Q4H PRN PRN Reason: PAIN LEVEL 6-10 Last Admin: 07/26/17 09:31 Dose: 650 mg Dexamethasone Sodium Phosphate (Decadron Injection -) 10 mg IVPUSH Q6H-IV JACOB Last Admin: 07/26/17 09:37 Dose: 10 mg Heparin Sodium (Porcine) (Heparin -) 5,000 unit SQ TID JACOB Last Admin: 07/26/17 06:28 Dose: 5,000 unit Lactated Ringer's (Lactated Ringers Solution) 1,000 ml in 1,000 mls @ 150 mls/ hr IV ASDIR [facility] Last Admin: 07/26/17 04:43 Dose: 150 mls/hr Ibuprofen (Caldolor Injection -) 800 mg IVPB Q6H PRN PRN Reason: Pain - Pacu Last Admin: 07/25/17 17:33 Dose: 800 mg Ondansetron HCl (Zofran Injection) 4 mg IVPUSH Q6H PRN PRN Reason: NAUSEA Oxycodone HCl (Roxicodone -) 5 mg PO Q4H PRN PRN Reason: PAIN LEVEL 1-5 Last Admin: 07/25/17 20:45 Dose: 5 mg Oxycodone HCl (Roxicodone -) 10 mg PO Q4H PRN PRN Reason: PAIN LEVEL 6-10 Last Admin: 07/26/17 09:30 Dose: 10 mg Pantoprazole Sodium (Protonix -) 20 mg PO DAILY [facility] Last Admin: 07/26/17 09:37 Dose: 20 mg - Objective Vital Signs: Vital Signs Temperature 97.6 F 07/26/17 07:10 Pulse Rate 56 L 07/26/17 07:10 Respiratory Rate 20 07/26/17 07:10 Blood Pressure 103/67 07/26/17 07:10 O2 Sat by Pulse Oximetry (%) 96 07/25/17 21:00 Constitutional: Yes: Well Nourished Cardiovascular: Yes: WNL Respiratory: Yes: WNL Gastrointestinal: Yes: WNL Labs: CBC, BMP 07/26/17 06:00 07/26/17 06:00 INR, PTT INR 1.21 (0.82-1.09) H 07/24/17 06:30 Assessment/Plan Pain controlled No nausea or vomiting Uvela appears erythematous and swollen but the patient states the symptoms are getting better Recommend to the primary team to obtain ENT consultation if the symptoms are not improving or the patient requests to be seen. Otherwise recommend ice chips and lozenges to help with the pain.
[2017-07-26] MEDS ORDERED: BENZOCAINE/MENTH/CETYLPYRD CL 1 EACH LOZENGE MM PRN (10:03)
--- NOTE | 2017-07-26 10:11 | PN ---
Progress Note (short form) - Note Progress Note: POD#1 Pt states that she had some painful swallowing overnight with diffculty breathing. Her symptoms have improve this am. Able to swallow her secretions. No nausea or emesis today. Abdominal pain is minimal. Vital Signs Period Temp Pulse Resp BP Sys/Stanley Pulse Ox Last 24 Hr 97.6 F-98.5 F 56-100 16-20 92-126/52-77 96-99 GEN: A&0x3, NAD CV: RRR Lungs: CTA b/l Neck: No stridor ABD: soft, non-distended, Incisional tenderness. Inc c/d/i LE: no calf tenderness or swelling noted b/l CBC, BMP 02//18 06:00 02//18 06:00 Laboratory Tests 07/26/18 06:00 Total Bilirubin 0.8 AST 54 H ALT 101 H Alkaline Phosphatase 155 H A/P: 31 yo female s/p lap basilio, POD #1 advance diet as tolerated based on throat discomfort Added cepacol lozenges IV steroids given by the medical team oob ambulate D/w Dr. Lehman
--- NOTE | 2017-07-26 10:34 | EKG ---
Test Reason : Blood Pressure : / mmHG Vent. Rate : 068 BPM Atrial Rate : 068 BPM P-R Int : 142 ms QRS Dur : 072 ms QT Int : 424 ms P-R-T Axes : 022 009 005 degrees QTc Int : 450 ms NORMAL SINUS RHYTHM WITH SINUS ARRHYTHMIA NONSPECIFIC T WAVE ABNORMALITY ABNORMAL ECG WHEN COMPARED WITH ECG OF 22-JUL-2017 08:17, NO SIGNIFICANT CHANGE WAS FOUND Confirmed by KINJAL MCMANUS, MORELIA ([id number]) on 07/26/2017 10:34:03 AM Referred By: Confirmed By:MORELIA LAYTON MD
--- NOTE | 2017-07-26 13:58 | PATH ---
Surgical Pathology Report Patient Name: LASHANDA ALEXANDER [facility]. Rec. #: [id number] /Age/Gender: 1985 (Age: 31) / F Account: [id number] Location: [facility] MED/SURG Taken: 07/25/2017 Received: 07/25/2017 Reported: 07/26/2017 Physicians: MD Allie Rodrigues M.D. Specimen(s) Received GALLBLADDER Clinical History Cholelithiasis Final Diagnosis GALLBLADDER, CHOLECYSTECTOMY: CHRONIC CHOLECYSTITIS AND CHOLELITHIASIS. Electronically Signed James Will M.D. Gross Description Received in formalin, labeled "gallbladder," is a 6.2 x 2.7 x 2.7 cm. gallbladder with a 0.2 cm. in length portion of cystic duct attached. The outer surface is tapia-pink and varies from smooth to shaggy. The lumen contains green, tenacious bile as well as multiple black, irregular to fragmented choleliths ranging from 0.1-0.5 cm in greatest dimension. The mucosa is green and velvety. The wall of the gallbladder ranges from 0.1-0.2 cm. in thickness. Kit Planner sections are submitted in one cassette. 07/25/201707/25/2017
--- NOTE | 2017-07-26 15:06 | PN ---
<Cecy Andrew - Last Filed: 07/26/17 15:07> Physical Exam: SUBJECTIVE: Patient seen and examined. Pt reports mild abdominal pain improved from yesterday, tolerated clear liquids diet. Pt s/p cholecystectomy today, uneventful. Pt denies chest pain, sob, fever, chills. OBJECTIVE: Vital Signs Period Temp Pulse Resp BP Sys/Stanley Pulse Ox Last 24 Hr 97.0 F-98.5 F 55-100 16-20 92-126/52-77 96-99 GENERAL: The patient is awake, alert, and fully oriented, in no acute distress. HEENT: uvula swelling reduced, still erythematous and elongated. Pt's voice hoarse this morning. LUNGS: Breath sounds equal, clear to auscultation bilaterally, no wheezes, no crackles, no accessory muscle use. HEART: Regular rate and rhythm, S1, S2 without murmur, rub or gallop. ABDOMEN: diffusely mildly tender to palpation. Laproscopic incisions with dressings CDI. Soft, nondistended, no guarding. EXTREMITIES: Warm, well-perfused, no edema. PSYCH: Normal mood, normal affect. SKIN: Warm, dry, normal turgor, no rashes or lesions noted Laboratory Results - last 24 hr 07/25/17 07/26/17 07/26/17 22:27 06:00 06:00 WBC 12.4 H D RBC 3.81 Hgb 10.9 Hct 32.2 L MCV 84.4 MCH 28.5 MCHC 33.8 RDW 15.9 H Plt Count 450 H MPV 8.5 Neutrophils % 89.9 H D Lymphocytes % 9.0 D Monocytes % 0.9 L D Eosinophils % 0.0 D Basophils % 0.2 Sodium 138 Potassium 4.5 Chloride 104 Carbon Dioxide 26 Anion Gap 8 BUN 5 L Creatinine 0.7 Creat Clearance w eGFR > 60 Random Glucose 130 H Calcium 8.9 Total Bilirubin 0.8 AST 54 H ALT 101 H Alkaline Phosphatase 155 H Troponin I < 0.02 Total Protein 7.1 Albumin 3.3 L Active Medications Generic Name Dose Route Start Last Admin Trade Name Freq PRN Reason Stop Dose Admin Acetaminophen 325 mg 07/25/17 15:48 07/25/17 20:45 Tylenol - PO 325 mg Q4H PRN Administration PAIN LEVEL 1-5 Acetaminophen 650 mg 07/25/17 15:49 07/26/17 14:17 Tylenol - PO 650 mg Q4H PRN Administration PAIN LEVEL 6-10 Benzocaine/Menthol 1 each 07/26/17 10:03 Cepacol Lozenge - MM PRN PRN SORE THROAT Heparin Sodium (Porcine) 5,000 unit 07/25/17 14:00 07/26/17 13:33 Heparin - SQ 5,000 unit TID JACOB Administration Lactated Ringer's 1,000 ml in 1,000 mls @ 150 mls/hr 07/25/17 13:50 07/26/17 13:55 Lactated Ringers Solution IV 150 mls/hr ASDIR JACOB Administration Ibuprofen 800 mg 07/25/17 13:50 07/25/17 17:33 Caldolor Injection - IVPB 800 mg Q6H PRN Administration Pain - Pacu Ondansetron HCl 4 mg 07/25/17 13:50 Zofran Injection IVPUSH Q6H PRN NAUSEA Oxycodone HCl 5 mg 07/25/17 15:48 07/25/17 20:45 Roxicodone - PO 5 mg Q4H PRN Administration PAIN LEVEL 1-5 Oxycodone HCl 10 mg 07/25/17 15:49 07/26/17 14:17 Roxicodone - PO 5 mg Q4H PRN Administration PAIN LEVEL 6-10 Pantoprazole Sodium 20 mg 07/26/17 10:00 07/26/17 09:37 Protonix - PO 20 mg DAILY JACOB Administration ASSESSMENT/PLAN: 31F with no significant PMH presents with epigastric pain, admitted for acute pancreatitis. # post-op uvular edema - likely 2/2 trauma (low suspicion for anaphylaxis) - improved, though voice hoarseness and uvular elongation appreciated this morning - ENT Consult - continue Lozenges and ice chips for sore throat - Anesthesia recs appreciated # acute cholecystitis - s/p cholecystectomy with Dr. Lehman - POD 1 - incision management by Surgery - pain control with Percocet prn, Ibuprofen prn # acute gallstone pancreatitis - IVFs - pain management # hyperbilirubinemia - resolved # acute anemia - resolved # FEN - Fluids: LR @ 150 ml/hr - Electrolytes: wnl, continue to monitor - Nutrition: soft diet # Prophylaxis - DVT ppx with Heparin TID - GI ppx with Protonix - deconditioning ppx with PT Visit type - Emergency Visit Emergency Visit: Yes ED Registration Date: 07/23/17 Care time: The patient presented to the Emergency Department on the above date and was hospitalized for further evaluation of their emergent condition. - New Patient This patient is new to me today: No - Critical Care Critical Care patient: No <Kunal Garza - Last Filed: 07/26/17 16:51> Physical Exam: Patient seen and examined with Dr. Andrew at 10:30 AM Agree with above findings and plan of care with exceptions mentioned below. o/E: HEENT: uvular base edema improved with some evidence of trauma, elongated uvula unchanged Abdomen: tenderness in epigastrium improved from yesterday, mild soreness around laparoscopic sites, positive bowel sounds, ND, positive bowel sounds extremities: no edema Assessment/Plan: -Acute gall stone pancreatitis -Acute cholecystitis -Post operative uvular edema with trauma Plan: Uvular edema improved, still elongated, ?trauma. low suspicion for anaphylaxis. Anesthesia/surgery input noted. D/c decadron. Close hemodynamic monitoring. Lozenges, ice chips. ENT consulted with Dr. Seaman,follow up recs. Advance to soft diet as tolerated. taper IVF as PO intake improves. Trend LFTs, improved. Dispo planning in 24 hours pending ENT input and clinical improvement. Plan discussed with patient in detail, all questions answered.
[2017-07-26] MEDS ORDERED: oxyCODONE HCL 5 MG TABLET PO PRN (16:31)
[2017-07-26] MEDS ORDERED: ACETAMINOPHEN 325 MG TABLET (FP) PO PRN (16:31)
--- NOTE | 2017-07-26 19:20 | CON.ENT ---
Consult Consult Specialty:: ENT Reason for Consultation:: swollen uvula - History of Present Illness Chief Complaint: swollen uvula History of Present Illness: 31 yo F with cholecystitis and cholelithiasis, now POD 1 s/p laparoscopic cholecystectomy c/o throat discomfort postop, exam shows swollen and elongated uvula pt able to eat soft foods, c/o abnormal sensation from uvula denies prior throat problems, no nasal symptoms - History Source History Provided By: Patient, Medical Record Limitations to Obtaining History: No Limitations - Past Medical History Additional Medical History: morbid obesity - Past Surgical History Past Surgical History: Yes: Cholecystectomy (07/25/2017 ), (x 2) Additional Surgical History: Liposuction - Alcohol/Substance Use Hx Alcohol Use: No - Smoking History Smoking history: Unknown if ever smoked Have you smoked in the past 12 months: No Aproximately how many cigarettes per day: 0 - Social History Usual Living Arrangement: Alone ADL: Independent Occupation: car sales History of Recent Travel: No Home Medications - Allergies Allergies/Adverse Reactions: Allergies Allergy/AdvReac Type Severity Reaction Status Date / Time No Known Allergies Allergy Verified 07/22/17 06:47 - Home Medications Home Medications: Ambulatory Orders Omeprazole 20 mg PO DAILY #10 capsule. 07/22/17 Family Disease History - Family Disease History Family Disease History: Other: Father (unknown), Mother (healthy), Sister ( healthy) Physical Exam-ENT Vital Signs: Vital Signs Temperature 98.2 F 07/26/17 16:30 Pulse Rate 74 07/26/17 16:30 Respiratory Rate 20 07/26/17 16:30 Blood Pressure 99/44 07/26/17 16:30 O2 Sat by Pulse Oximetry (%) 96 07/25/17 21:00 Constitutional: Yes: Well Nourished, No Distress, Calm Head: Yes: WNL Face: Yes: WNL Eyes: Yes: WNL Nose: Yes: WNL, Other (sl dry mucosa right inferior turbinate) Nasal Passage: Yes: WNL Oral/Pharynx: Yes: Other (lips, teeth, tongue, floor of mouth hard palate WNL. soft palate +uvula sl swollen at base, edematous, elongated with few mm watery edema at tip. tip fully visualized, no obstruction, tonsils WNL, voice clear and strong, no stridor or respiratory distress) Outer Ear: Yes: WNL Neck: Yes: WNL Respiratory: Yes: WNL Neurological: Yes: WNL, Alert, Oriented Imaging - Results Cat Scan: Report Reviewed Problem List - Problems (1) Uvular swelling Assessment/Plan: uvular swelling and elongation s/p endotracheal intubation for urgent laparascopic cholecystectomy suspect acute inflammation from ETT ?possible irritation from acid reflux improving pt able to eat soft foods, normal airway, normal voice Recommend: pt reassured that this swelling should subside spontaneously diet as tolerated advised to avoid spicy or acidic foods (citrus juice, vinegar, etc) analgesic prn may also use ice chips etc. advised to follow-up in office after discharge if this has not resolved Thank you for consultation Jurgen Eckert MD FACS Code(s): K13.79 - OTHER LESIONS OF ORAL MUCOSA
[2017-07-27] MEDS: HEPARIN NA (PORCINE) 5,000 UNITS/ML 1ML VIAL SQ SCH (06:39)
[2017-07-27 06:45] LABS: HEMATOCRIT 29.4 % (32.4-45.2); HEMOGLOBIN 9.9 GM/dL (10.7-15.3); MCHC 33.8 g/dl (32.0-36.0); MEAN CELL VOLUME 85.8 fl (80-96); MEAN PLT VOLUME 8.6 fl (7.5-11.1); PLATELET COUNT 395 K/MM3 (134-434); RBC 3.42 M/mm3 (3.60-5.2); RDW 15.7 % (11.6-15.6); WHITE BLOOD COUNT 19.7 K/mm3 (4.0-10.0)
[2017-07-27 07:18] LABS: ANION GAP 12 (8-16); BLOOD UREA NITROGEN 11 mg/dL (7-18); CALCIUM 8.8 mg/dL (8.5-10.1); CHLORIDE 106 mmol/L (98-107); CO2 24 mmol/L (21-32); GLUCOSE,RANDOM 97 mg/dL (74-106); MAGNESIUM 2.1 mg/dL (1.8-2.4); POTASSIUM 3.6 mmol/L (3.5-5.1); SODIUM 142 mmol/L (136-145)
[2017-07-27 07:22] LABS: ALK PHOS 132 U/L (45-117); BILIRUBIN,TOTAL 0.3 mg/dL (0.2-1.0); CREATININE 0.7 mg/dL (0.55-1.02); PHOSPHOROUS 2.6 mg/dL (2.5-4.9); SGOT/AST 55 U/L (15-37); SGPT/ALT 85 U/L (12-78); TOT PROT 6.5 g/dl (6.4-8.2)
[2017-07-27] MEDS: PANTOPRAZOLE 20 MG TABLET (FP) PO SCH (09:59)
--- NOTE | 2017-07-27 12:01 | PN ---
Teaching Attending Note Name of Resident: Cecy Andrew ATTENDING PHYSICIAN STATEMENT Time of evaluation: 9:50 AM I saw and evaluated the patient. I reviewed the resident's note and discussed the case with the resident. I agree with the resident's findings and plan as documented. SUBJECTIVE: Patient seen and examined. eating well, had a BM, throat symptoms better. No new concerns, eager to go home. OBJECTIVE: Vital Signs Period Temp Pulse Resp BP Sys/Stanley Pulse Ox Last 24 Hr 97.0 F-98.2 F 67-75 18-20 99-117/44-76 96 Intake & Output 07/24/17 07/25/17 07/26/17 07/27/17 23:59 23:59 23:59 23:59 Intake Total 2550 4100 2823 Output Total 1220 400 Balance 2550 2880 2423 General: sitting in chair in no acute distress Abdomen: soft, mild epigastric/LUQ tenderness (markedly improved exam), no voluntary or involuntary guarding or rigidity, positive bowel sounds chest: CTAB, no rales or wheezing HEENT: improved swelling at base of uvula, almost resolved, still elongated uvula extremities: no edema Active Medications Generic Name Dose Route Start Last Admin Trade Name Freq PRN Reason Stop Dose Admin Acetaminophen 325 mg 07/26/17 16:31 07/27/17 09:59 Tylenol - PO 325 mg Q4H PRN Administration PAIN LEVEL 6-10 Benzocaine/Menthol 1 each 07/26/17 10:03 Cepacol Lozenge - MM PRN PRN SORE THROAT Heparin Sodium (Porcine) 5,000 unit 07/25/17 14:00 07/27/17 06:39 Heparin - SQ 5,000 unit TID JACOB Administration Lactated Ringer's 1,000 ml in 1,000 mls @ 150 mls/hr 07/25/17 13:50 07/26/17 22:14 Lactated Ringers Solution IV 150 mls/hr ASDIR JACOB Administration Ibuprofen 800 mg 07/25/17 13:50 07/25/17 17:33 Caldolor Injection - IVPB 800 mg Q6H PRN Administration Pain - Pacu Ondansetron HCl 4 mg 07/25/17 13:50 Zofran Injection IVPUSH Q6H PRN NAUSEA Pantoprazole Sodium 20 mg 07/26/17 10:00 07/27/17 09:59 Protonix - PO 20 mg DAILY JACOB Administration Laboratory Results - last 24 hr 07/27/17 07/27/17 06:15 06:15 WBC 19.7 H D RBC 3.42 L Hgb 9.9 L Hct 29.4 L MCV 85.8 MCH 29.0 MCHC 33.8 RDW 15.7 H Plt Count 395 MPV 8.6 Sodium 142 Potassium 3.6 Chloride 106 Carbon Dioxide 24 Anion Gap 12 BUN 11 Creatinine 0.7 Creat Clearance w eGFR > 60 Random Glucose 97 Calcium 8.8 Phosphorus 2.6 Magnesium 2.1 Total Bilirubin 0.3 D AST 55 H ALT 85 H Alkaline Phosphatase 132 H Total Protein 6.5 Albumin 3.0 L Microbiology 07/23/17 06:30 Blood - Peripheral Venous Blood Culture - Preliminary NO GROWTH OBTAINED AFTER 96 HOURS, INCUBATION TO CONTINUE FOR 1 DAYS. 07/23/17 06:30 Blood - Peripheral Venous Blood Culture - Preliminary NO GROWTH OBTAINED AFTER 96 HOURS, INCUBATION TO CONTINUE FOR 1 DAYS. ASSESSMENT AND PLAN: -Acute gall stone pancreatitis -Acute cholecystitis -Post operative uvular edema with trauma -Leucocytosis, suspect steroid induced demargination, -Anemia suspect multifactorial from dilution/menstrual blood loss Plan: doing well post op. tolerating diet. Surgery input noted, outpatient follow up. ENT input noted. Avoid citrus/spicy foods. Ice chips and lozenges, outpatient follow up. WBC high, suspect related to high dose steroids, No new focal s/s concerning for infectious process Afebrile, continues to improve. Outpatient CBC monitoring. d/c home today with outpatient PCP/Surgery follow up. Plan discussed with patient in detail, all questions answered.
[2017-07-27 13:08] VITALS: BP 114/79; PULSE 63; TEMP 98.5
--- NOTE | 2017-07-27 13:50 | DS ---
Physical Exam: SUBJECTIVE: Patient seen and examined. Pt's uvular swelling is reduced and pt reports improved throat symptoms. Pt reports mild abdominal pain improved from yesterday, tolerated soft diet. Pt reports (+) flatus and bowel movement. Pt feels ready to go home. Pt denies chest pain, sob, fever, chills. OBJECTIVE: Vital Signs Period Temp Pulse Resp BP Sys/Stanley Pulse Ox Last 24 Hr 97.0 F-98.5 F 63-75 18-20 99-117/44-79 96 PHYSICAL EXAM GENERAL: The patient is awake, alert, and fully oriented, in no acute distress. HEENT: uvula swelling reduced, still erythematous and elongated. Pt's voice less hoarse today. LUNGS: Breath sounds equal, clear to auscultation bilaterally, no wheezes, no crackles, no accessory muscle use. HEART: Regular rate and rhythm, S1, S2 without murmur, rub or gallop. ABDOMEN: diffusely mildly tender to palpation. Laproscopic incisions with steri strips CDI. Soft, nondistended, no guarding. EXTREMITIES: Left hand swollen. IV removed and hand elevated. Upon reassessment later, hand swelling reducing. Paul LE warm, well-perfused, no edema. PSYCH: Normal mood, normal affect. SKIN: Warm, dry, normal turgor, no rashes or lesions noted LABS Laboratory Results - last 24 hr 07/27/17 07/27/17 06:15 06:15 WBC 19.7 H D RBC 3.42 L Hgb 9.9 L Hct 29.4 L MCV 85.8 MCH 29.0 MCHC 33.8 RDW 15.7 H Plt Count 395 MPV 8.6 Sodium 142 Potassium 3.6 Chloride 106 Carbon Dioxide 24 Anion Gap 12 BUN 11 Creatinine 0.7 Creat Clearance w eGFR > 60 Random Glucose 97 Calcium 8.8 Phosphorus 2.6 Magnesium 2.1 Total Bilirubin 0.3 D AST 55 H ALT 85 H Alkaline Phosphatase 132 H Total Protein 6.5 Albumin 3.0 L HOSPITAL COURSE: Date of Admission:07/23/17 Date of Discharge: 07/27/17 31F with no significant PMH presents with epigastric pain, admitted for acute pancreatitis. Pt received cholecystectomy by Dr. Lehman on 07/25/17. Pt experienced post-op uvular edema and was seen by ENT (Dr. Eckert), who believes swelling will resolve spontaneously. 07/23/17 Ab/Pel CT -> gallbladder consistent with acute cholecytitis, inflammation may extend to pancreas 07/24/17 MRCP -> cholelithiasis with acute cholecystitis. Peripancreatic edema suggestive of pancreatitis without evidence of pancreatitic tissue necrosis, ductal dilation or pseudocyst formation. No choledocholelithiais or pancreaticobiliary ductal dilatation. Microbiology 07/23/17 06:30 Blood - Peripheral Venous Blood Culture - Preliminary NO GROWTH OBTAINED AFTER 96 HOURS, INCUBATION TO CONTINUE FOR 1 DAYS. 07/23/17 06:30 Blood - Peripheral Venous Blood Culture - Preliminary NO GROWTH OBTAINED AFTER 96 HOURS, INCUBATION TO CONTINUE FOR 1 DAYS. Pt walked 150 ft with PT yesterday. Pt stable for discharge home. Minutes to complete discharge: 37 Discharge Summary Reason For Visit: ACUTE PANCREATITIS Condition: Improved - Instructions Diet, Activity, Other Instructions: You were treated for pancreatitis. Your gallbladder was removed by Dr. Lehman on 07/25/17, to prevent future episodes of pancreatits caused by gallstones ( please read to his discharge instructions below). You were not prescribed any new medications. Continue your home medication of Omeprazole as prescribed. Continue to eat a regular soft diet (no restrictions). However, for now you may want to avoid spicy or acidic foods (citrus juice, vinegar) until your uvula heals in your mouth. Use ice chips and throat lozenges for relief from mouth/throat discomfort as needed also. Increase physical activity as tolerated. Follow-ups: - schedule an appointment with your Primary Care Physician (Dr. Marquez) in 1 week - get blood work (Complete Blood Count, CBC) to check your WBC count and your Hemoglobin level in 1 week. Your WBC are elevated which could be due to steroid you got for uvula swelling - schedule an appointment with your Surgeon (Dr. Lehman) in 1 week (please refer to his instructions below) - if your uvula swelling does not resolve, schedule an appointment with ENT ( Dr. Eckert) Please return to the hospital immediately if you experience persistent or increased throat pain, difficulty swallowing, difficulty breathing, abdominal pain, fever, chills, chest pain, or for any medical emergency. Dr. Lehman Discharge Instructions Dear LASHANDA ALEXANDER, Post Operative Instructions Physical activity Resume your normal everyday activity as tolerated no heavy lifting or exercise until seen by your surgeon. You may walk unlimited amounts of and climb stairs. You may resume driving the car when you feel safe and comfortable behind the wheel. Wound care If you have a bandage, leave it on, and keep dry for 48 - 72 hours. After that time discard the outer bandage. If there are tapes on the skin under the outer bandage, leave them in place. They will peel off in the next 7 to 10 days. Do Not peel them off. You may shower 2 days after surgery. If there are tapes present on the skin, they can get wet. Diet There are no dietary restrictions. Eat healthy, high-fiber foods. Drink 6 to 8 glasses of liquid each day. This will assist in keeping your bowels are regular. Pain management You may take Tylenol or acetaminophen or Ibuprofen (for example, Motrin, Advil etc.) Any pain prescription medication ordered should be taken as prescribed for moderate to severe pain. Call Dr. Lehman for any of the following: Severe pain not relieved by medication Fever of 101 or higher Excessive bleeding or drainage on dressing Inability to urinate Call the office at [phone] for a post operative appointment in 7 - 10 days. Referrals: Imtiaz Lehman MD [Staff Physician] - 1 Week Samuel Marquez MD [Staff Physician] - 1 Week Jurgen Eckert MD [Staff Physician] - Disposition: HOME - Home Medications Comprehensive Discharge Medication List: Ambulatory Orders Omeprazole 20 mg PO DAILY #10 capsule. 07/22/17 This patient is new to me today: No Emergency Visit: Yes ED Registration Date: 07/23/17 Care time: The patient presented to the Emergency Department on the above date and was hospitalized for further evaluation of their emergent condition. Critical Care patient: No - Discharge Referral Referred to [facility] Med P.C.: No
== END 2017-07-27 13:09 | disposition home or self-care (01) | DRG 263 ==
LOC: JER 02:10 → JERBED 06:11 → J8W 07:15
PROVIDERS: ADMIT Internal Medicine; ATTEND Hospitalist
PROC: 0FT44ZZ Resection of Gallbladder, Percutaneous Endoscopic Approach (ICD-10-PCS; principal; 2017-07-25 14:00)
DX: K85.10 Biliary acute pancreatitis without necrosis or infection (principal); K80.00 Calculus of gallbladder with acute cholecystitis without obstruction; D68.59 Other primary thrombophilia; E66.01 Morbid (severe) obesity due to excess calories; R13.10 Dysphagia, unspecified; Z68.32 Body mass index [BMI] 32.0-32.9, adult; J02.9 Acute pharyngitis, unspecified; K13.79 Other lesions of oral mucosa; E80.6 Other disorders of bilirubin metabolism; D72.829 Elevated white blood cell count, unspecified; D64.9 Anemia, unspecified; R60.0 Localized edema; R17 Unspecified jaundice
CPT/HCPCS: 36415; 74177-TC; 74182-TC; 80053; 80061; 82150; 82248; 82803; 83605; 83690; 83721; 83735; 84100; 84484; 85025; 85027; 85610; 86140; 87040; 88304-TC; 93005; 93010; 94760; 97116-GP; 97161-GP; 99282-25; J1100; J1644

== ENCOUNTER 2018-03-26 05:07 | Day surgery (SDC) | payer OTHER ==
[2018-03-23 13:21] VITALS: BMI 35.4
--- NOTE | 2018-03-26 12:47 | HP ---
History & Physical Update - History History: No Change - Physical Physical: No Change - Assessment Assessment: No Change - Plan Plan: No Change (Full H&P in chart from 03/16/[address] Lehman)
[2018-03-26] MEDS ORDERED: ROCURONIUM BROMIDE 50 MG/5 ML VIAL ONE (13:27)
[2018-03-26] MEDS ORDERED: fentaNYL CITRATE 250 MCG/5 ML VIAL ONE (13:27)
[2018-03-26] MEDS ORDERED: MIDAZOLAM HCL 2 MG/2 ML SINGLE DOSE VIAL ONE (13:27)
[2018-03-26] MEDS ORDERED: PROPOFOL 20 ML ONE (13:27)
[2018-03-26] MEDS ORDERED: LIDOCAINE HCL/PF 2% SDV 5ML VIAL ONE (13:32)
[2018-03-26] MEDS ORDERED: LIDOCAINE HCL 1%, 10 MG/ML (50 mL VIAL) IJ ONE ×2 (14:00)
[2018-03-26] MEDS ORDERED: BUPIVACAINE HCL/PF (5 MG/ML) 30 ML VIAL IJ ONE ×2 (14:00)
[2018-03-26] MEDS ORDERED: GLYCOPYRROLATE 0.2 MG/1 ML VIAL ONE (14:12)
[2018-03-26] MEDS ORDERED: NEOSTIGMINE METHYLSULFATE 0.5 MG/ML - 10 ML MDV ONE (14:12)
[2018-03-26] MEDS ORDERED: oxyCODONE HCL 5 MG TABLET PO PRN (14:47)
[2018-03-26] MEDS ORDERED: ONDANSETRON 4 MG/2 ML VIAL IVPUSH PRN (14:47)
[2018-03-26] MEDS ORDERED: LACTATED RINGERS SOLUTION 1,000 ML IV SCH (15:00)
--- NOTE | 2018-03-26 15:25 | OP ---
Operative Note - Note: Operative Date: 03/26/18 Pre-Operative Diagnosis: incisional hernia Operation: repair incisional hernia Findings: port site hernia in epigastrium from previous lap basilio Surgeon: Imtiaz Lehman Night Court Magistrate: Ivelisse Bansal Anesthesiologist/BILINGUAL RECRUITER: Antoni Ponce Anesthesia: General Specimens Removed: hernia sac and fat Estimated Blood Loss (mls): 15
--- NOTE | 2018-03-26 15:29 | SURG ---
Surgery Road Roller Engineer Note Road Roller Engineer: Ivelisse Bansal PA-C Date of Service: 03/26/18 Diagnosis: incisional hernia Procedure: Primary repair of incisional hernia I was present for the entirety of the operative procedure. For further detail, please refer to operative report. Visit type - Case Type Case Type: Scheduled - Emergency Emergency Visit: No - New patient This patient is new to me today: Yes Date on this admission: 03/26/18
[2018-03-26 17:11] VITALS: TEMP 97.4
[2018-03-26 18:09] VITALS: BP 106/68; PULSE 73
--- NOTE | 2018-03-29 17:25 | PATH ---
Surgical Pathology Report Patient Name: LASHANDA ALEXANDER [facility]. Rec. #: [id number] /Age/Gender: 1985 (Age: 32) / F Account: [id number] Location: [facility] SURGICAL Taken: 03/26/2018 Received: 03/27/2018 Reported: 03/29/2018 Physicians: Imtiaz Lehman MD Specimen(s) Received HERNIA SAC Clinical History Incisional hernia Final Diagnosis HERNIA SAC, INCISIONAL HERNIA REPAIR: FIBROADIPOSE TISSUE CONSISTENT WITH HERNIA SAC. Electronically Signed Neeta Dubon M.D. Gross Description Received in formalin labeled "hernia sac," is a 5.3 x 5.0 x 2.8 cm aggregate of multiple tapia-mata irregular portions of fibromembranous tissue with abundant attached fat, consistent with a hernia sac. [employer] Classifier sections are submitted in one cassette. /03/27/2018 saudi03/27/2018
--- NOTE | 2018-04-02 13:27 | OP ---
DATE OF OPERATION: 03/26/2018 PREOPERATIVE DIAGNOSIS: Incisional hernia. POSTOPERATIVE DIAGNOSIS: Incisional hernia. PROCEDURE: Repair incisional hernia. SURGEON: Imtiaz Lehman MD SVP RESEARCH AND STRATEGIC ANALYSIS: JAZZY Owens ANESTHESIA: General. OPERATIVE FINDINGS: There was an incisional hernia containing fat and omentum at the previous epigastric port site from previous laparoscopic cholecystectomy. The fascial defect was approximately 2.5 cm in greatest dimension. The rest of the findings were unremarkable. DESCRIPTION OF PROCEDURE: The patient was placed on the operating table in supine position. After induction of general anesthesia, the patient's abdomen was prepped with ChloraPrep and draped in a sterile fashion. A time-out was taken, and an incision was made through the previous epigastric port site extending it for several mm medially and laterally. This was taken down through skin and subcutaneous tissue until the hernia sac was identified. The sac was dissected free from the surrounding tissue and then entered under direct vision and the previously noted findings were observed. Redundant sac and adhesed preperitoneal fat and omen were excising using electrocautery. Next, the undersurface of the abdominal wall was cleared bluntly from any other adhesions and the fascia cleared circumferentially around the defect for approximately 2 cm. Next, the hernia was repaired with multiple No. 1 horizontal mattress sutures of TiCron. Hemostasis was checked for and noted to be good and then the wound was copiously irrigated with sterile saline. Hemostasis was again verified and then 1% lidocaine and 0.5% Marcaine in equal concentrations was injected into the operative field. The deep tissue where the sac was was reapproximated with an interrupted 2-0 Vicryl, the deep dermis with interrupted 3-0 Vicryl, and the skin edges with 4-0 Monocryl in a subcuticular continuous fashion. Steri-Strips and dry, sterile dressings were placed and the procedure terminated at this point and the patient aroused from general anesthesia and transferred to the post anesthesia care unit in stable condition awake and alert. ESTIMATED BLOOD LOSS: 15 mL. REPLACEMENT: Crystalloid. DRAINS: None. SPECIMENS: Hernia sac and fat to pathology. I, Imtiaz Lehman, was physically present in the operating room from the time the patient was placed on the operating room table until she was transferred to the post anesthesia care unit in [place] [facility]. MD ERICH Terrell/[id number] ÓSCAR
== END 2018-03-26 18:10 | disposition home or self-care (01) ==
LOC: JASU-SURG 05:07
PROVIDERS: ATTEND Surgery
PROC: 0WQF0ZZ Repair Abdominal Wall, Open Approach (ICD-10-PCS; principal; 2018-03-26 13:00)
DX: K43.2 Incisional hernia without obstruction or gangrene (principal)
CPT/HCPCS: 84703; 94760

== ENCOUNTER 2020-08-09 15:16 | Emergency (ER) | payer OTHER ==
[2020-08-09 15:26] VITALS: BP 106/69; PULSE 101; TEMP 99.1; BMI 34.3
[2020-08-09] MEDS ORDERED: ONDANSETRON 4 MG TABLET PO ONE (16:16)
[2020-08-09] MEDS ORDERED: MAG HYDROX/AL HYDROX/SIMETH -MYLANTA- ORAL SUSPENSION PO ONE (16:16)
[2020-08-09] MEDS ORDERED: FAMOTIDINE 20 MG TABLET PO ONE (16:16)
[2020-08-09] MEDS ORDERED: ONDANSETRON *ODT* 4 MG TABLET ONE (16:26)
[2020-08-09] MEDS ORDERED: FAMOTIDINE 20 MG TABLET ONE (16:26)
[2020-08-09] MEDS ORDERED: MAG HYDROX/AL HYDROX/SIMETH 30 ML UNIT-DOSE CUP ONE (16:27)
== END 2020-08-09 16:36 | disposition home or self-care (01) ==
LOC: JER 15:16
DX: R10.13 Epigastric pain (principal); R11.0 Nausea; R14.2 Eructation
CPT/HCPCS: 93005; 93010; 99284-25